=== PATIENT | male | born 1960 | race Caucasian/White ===

== ENCOUNTER → 2021-02-02 07:47 | Outpatient (CLI) | payer OTHER, SELFPAY ==
--- NOTE | ~2021-02-02 | MR_ITS ---
EXAMINATION: MR knee RT wo con DATE: 02/02/2021 08:31 INDICATION: Right knee pain. TECHNIQUE: Magnetic resonance imaging (MRI) of the right knee was performed without intravenous contr ast. Sequences included coronal PD-weighted FSE, coronal PD-weighted FS FSE, sagittal T2-weighted FS E, sagittal PD-weighted FS FSE and axial PD weighted fat saturated FSE. COMPARISON: None. FINDINGS: Medial compartment: There is a longitudinal horizontal tear which extends to the inferior articular surface of the grainer machine ior horn and body of the medial meniscus. The meniscal body appears small with more diffuse amorphous increased signal suggesting complex tear with additional secondary tear plane/planes. Partial-thickn ess cartilage loss with chondral surface regularity along the medial tibial plateau with small region of subarticular edema along the medial rim. Additional less severe partial thickness cartilage loss and fissuring throughout the weightbearing medial femoral condyle but without degenerative subchondra l changes. Lateral compartment: There is linear increased intrasubstance signal at the body and posterior horn of the lateral meniscu s but which does not unambiguously contact the articular surfaces which remains equivocal for tear of a longitudinal horizontal tear versus mucoid degeneration. Chondral surface regularity along the lat eral tibial plateau. Partial-thickness cartilage loss with chondral surface irregularity with and wit hout degenerative subchondral changes along the posterior weightbearing lateral femoral condyle. Patellofemoral compartment: Deep chondral ulceration with underlying cortical irregularity and subarticular edema extending acros s the caudal aspect of the medial trochlea, trochlear groove and lateral trochlea. Shallow chondral s urface irregularity at the lateral patellar facet, apical ridge and medial facet. Ligaments and tendons: Anterior and posterior cruciate ligaments are normal. The medial collateral ligament and fibular stacey ateral ligament complex are normal. Mild distal quadriceps tendinopathy without discrete tear. The pa tellar tendon is normal. The visualized medial and lateral hamstring tendons as well as the iliotibia l band are normal. Fluid: Small amount of fluid within the suprapatellar pouch of the right knee which is within normal limits. No loose osteochondral bodies identified. Very small Mendoza's cyst. Osseous/other: A few small scattered low signal intensity bone islands. No fracture or pathologic marrow replacing p rocess. IMPRESSION: 1. No meniscal tear, likely complex. 2. Possible longitudinal horizontal tear versus mucoid degeneration at the lateral meniscus. 3. 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 Reviewed, dictated and finalized at location A. IMPRESSION: 1. No meniscal tear, likely complex. 2. Possible longitudinal horizontal tear versus mucoid degeneration at the late ral meniscus. 3. Mild tricompartmental osteoarthritis at the right knee with high-grade troch lear chondromalacia.
== END ==
PROVIDERS: PCP Internal Medicine; Visit Provider Physician Assistant Medical
DX: M17.11 Unilateral primary osteoarthritis, right knee (principal)
CPT/HCPCS: 73721

== ENCOUNTER → 2021-04-18 01:04 | Outpatient (CLI) | payer OTHER, SELFPAY ==
[2021-04-18 17:56] LABS: SARS-CoV-2 RNA PCR Negative
== END ==
PROVIDERS: PCP Internal Medicine; Visit Provider Orthopaedic Surgery
DX: Z01.812 Encounter for preprocedural laboratory examination (principal); Z20.822 Contact with and (suspected) exposure to COVID-19
CPT/HCPCS: C9803; U0003; U0005

== ENCOUNTER 2021-04-18 09:01 | Outpatient (CLI) | payer OTHER, SELFPAY ==
[2021-04-18 09:26] LABS: Anion Gap 9 mmol/L (8-16); Blood Urea Nitrogen 18 mg/dL (9-20); Calcium 9.9 mg/dL (8.4-10.2); Carbon Dioxide 25 mmol/L (22-30); Chloride 110 mmol/L (98-107); Estimated Glomerular Filt Rate > 60; Glucose 107 mg/dL (75-110); Potassium 3.3 mmol/L (3.4-5.0); Sodium 144 mmol/L (137-145)
== END 2021-04-18 09:02 | disposition home or self-care (01) ==
PROVIDERS: PCP Internal Medicine; Visit Provider Anesthesiology
DX: Z01.812 Encounter for preprocedural laboratory examination (principal); Z79.899 Other long term (current) drug therapy
CPT/HCPCS: 36415; 80048

== ENCOUNTER 2021-04-21 01:55 | Day surgery (SDC) | payer OTHER, SELFPAY ==
[2021-04-10 13:37] VITALS: BMI 32.7
--- NOTE | 2021-04-20 12:56 | WPDANESEPPF ---
Anes - Initial Pre Proc Eval Procedure: Operation Date: 04/21/21 10:30 Proposed Procedures p Right Knee Arthroscopy, Proceed As Indicated - Rashaun Booker MD Date/Time: 04/20/21 12:56 Surgeon: Rashaun Booker MD Pre Op Diagnosis: right knee lateral meniscus tear Patient Data Age: 61 Gender: M Height: 1.73 m Weight: 97.57 kg Allergies Allergy/AdvReac Type Severity Reaction Status Date / Time No Known Allergies Allergy Unknown Verified 04/21/21 08:50 Home Medications Medication Instructions Recorded Confirmed Type amlodipine 5 mg tablet 5 mg PO DAILY 03/11/21 04/21/21 History pravastatin 20 mg tablet 20 mg PO DAILY 03/11/21 04/21/21 History triamterene 37.5 1 cap PO DAILY 03/11/21 04/21/21 History mg-hydrochlorothiazide 25 mg capsule Patient hx anesthesia problems: none Family hx anesthesia problems: none PMFSH Past Medical History Medical History (Updated 04/20/21 @ 12:57 by Jair Morgan MD) HTN (hypertension) Hyperlipidemia Kidney stones Obesity Wears glasses Family History Family History (Updated 03/09/21 @ 15:01 by Zeynep Zarco RT(R)) Other Diabetes mellitus Social History Social History (Updated 03/09/21 @ 09:47 by Eveline Lynn MA) Smoking status: Never smoker Alcohol intake: current Alcohol use details: 1 EVERY COUPLE MONTHS Substance use: never Substance use type: does not use Living arrangements: with family Gender identity (if verbalized by the patient): Male Spiritual care concerns: No Anes - Eval Final PreProcedure Day of Procedure 04/20/21 12:56 Patient weight: obese Heart: regular rate and rhythm Lungs: clear to auscultation and normal air movement Airway: Mallampati scale class II Neurological: alert and oriented Last oral intake: >/= 8 hours ASA classification: III Emergent: no Anesthetic plan: proceed Anesthesia type and monitoring: general LMA Informed Consent: The patient's anesthetic plan and its attendant risks and benefits were discussed with the patient/family/POA. Questions were solicited and answers provided to the satisfaction of the patient/family/POA.
[2021-04-21] VITALS (9 sets, daily range): BP systolic 113–139; BP diastolic 77–85; PULSE 52–66; RESP 12–16; TEMP 36.2–36.3; O2SAT 92–98
--- NOTE | 2021-04-21 07:20 | WPDHPUPDATE1 ---
History and Physical Update Update Date/Time: 04/21/21 07:20 History and Physical has been reviewed, including an updated exam of the patient. There are NO changes in the patient's condition. Risks, benefits, and alternatives have been discussed and questions answered. Patient agrees to proceed with procedure.
[2021-04-21] MEDS: ACETAMINOPHEN 500 MG TABLET 1000 MG PO (09:09)
[2021-04-21] MEDS: CELECOXIB 200 MG CAPSULE PO (09:09)
[2021-04-21] MEDS: LACTATED RINGERS 1,000 ML 30 ML IV CONT ×2 (09:22→13:42)
--- NOTE | 2021-04-21 10:39 | SUR.PREOP ---
1015 pt informed of delay in procedure.
[2021-04-21] MEDS: ceFAZolin 2 GM/D5W 50 ML 2 GM/50 ML BAG IVPB (11:56)
[2021-04-21] MEDS: BUPIVACAINE HCL 0.5% PF 30 ML VIAL INFILTRATE (12:30)
--- NOTE | 2021-04-21 13:20 | W.PM.PROC2 ---
Procedure Note - Detailed Date of Procedure 04/21/21 Pre-op Diagnosis right knee medial and lateral meniscus tear Post-op Diagnosis same Procedure Performed RIGHT KNEE SCOPE Surgeon Rashaun Booker MD Anesthesia general Description of Procedure PATIENT WAS TAKEN TO THE OR. RIGHT LEG WAS PREPPED AND DRAPED STERILE. TROCARS WERE PLACED IN THE USUAL FASHION. CAMERA WAS INTRODUCED. THERE WAS CHONDROMALACIA TO THE PATELLA FEMORAL JOINT. THERE WAS A LOT OF SYNOVITIS IN ALL COMPARTMENTS. THE MEDIAL COMPARTMENT SHOWED CHONDROMALACIA TO THE MEDIAL FEMORAL CONDYLE. A SHAVER WAS USED TO PREFORM A CHONDROPLASTY. THERE WAS A COMPLEX MEDIAL MENISCUS TEAR. THE TEAR WAS RESECTED WITH A BITER AND A SHAVER DOWN TO A SMOOTH BASE. ABOUT 30% OF THE MENISCUS WAS REMOVED. THE ACL WAS INTACT. THE LATERAL MENISCUS WAS TORN AT THE ANTERIOR HORN. THE TEAR WAS RESECTED. THE LAT COMPARTMENT HAD GRADE 2 CHONDROMALACIA AT THE LATERAL PLATEAU. CHONDROPLASTY WAS PREFORMED. A SYNOVECTOMY WAS PREFORMED WELL. THE PATELLO FEMORAL JOINT UNDERWENT CHONDROPLASTY. THERE WAS GRADE 3 CHONDROMALACIA IN MOST OF THE TROCHLEA AND PART OF THE PATELLA. SYNOVECTOMY WAS PREFORMED IN THE SUPERIOR MEDIAL COMPARTMENT. THE WOUNDS WERE APPROXIMATED WITH 4.0 NYLON. STERILE DRESSING WAS APPLIED. PATIENT WAS EXTUBATED. Estimated Blood Loss 5 Complications No immediate complications Condition stable Disposition PACU
--- NOTE | 2021-04-21 13:44 | SUR.PHASEI ---
Simple mask removed at 1335.
[2021-04-21] MEDS: fentaNYL CITRATE INJ (*CRX) 100 MCG/2 ML VIAL 25 MCG IV PUSH ×5 (13:46→14:55)
[2021-04-21] MEDS: oxyCODONE HCL (*CRX) 5 MG TAB IR PO (14:25)
== END 2021-04-21 15:16 | disposition home or self-care (01) ==
PROVIDERS: PCP Internal Medicine; Visit Provider Orthopaedic Surgery
PROC: (CPT 29870; principal; 2021-04-21 10:30)
DX: S83.231A Complex tear of medial meniscus, current injury, right knee, initial encounter (principal); S83.281A Other tear of lateral meniscus, current injury, right knee, initial encounter; M94.261 Chondromalacia, right knee; M65.861 Other synovitis and tenosynovitis, right lower leg; X58.XXXA Exposure to other specified factors, initial encounter; I10 Essential (primary) hypertension; E78.5 Hyperlipidemia, unspecified; E66.9 Obesity, unspecified; Z68.33 Body mass index [BMI] 33.0-33.9, adult
CPT/HCPCS: 29880; 36415; 80048; A9270; C9803; J0690; J2250; J2704; J3010; J7120; U0003; U0005

== ENCOUNTER → 2021-09-04 14:10 | Outpatient (CLI) | payer OTHER, SELFPAY ==
--- NOTE | ~2021-09-04 | CT_ITS ---
Corrected Report See Bolded Text 09/08/2021 POL[place] EXAMINATION: CT diagnostic chest w con DATE: 09/04/2021 14:42 INDICATION: Abnormal chest x-ray. Cough. TECHNIQUE: Computed tomography (CT) of the chest was performed with 75 cc Omnipaque 350 intravenous contrast. The dose-length product was 617.57 mGy-cm. Automated exposure control and iterative reconstruction technique were employed. COMPARISON: None FINDINGS: There is patchy bilateral airspace consolidation in both lungs, consistent with pneumonia. No endobronchial lesions. No significant vascular abnormality. Heart size normal. No significant pleural or pericardial effusion. No pneumothorax. No pulmonary embolism is identified. Small hiatal hernia. There are multiple low density lesions scattered throughout both lobes of the liver, largest in the left hepatic lobe measuring 3.1 x 2.6 cm. The spleen, pancreas and adrenal glands are unremarkable. There is a right renal cyst. The kidneys are only partially visualized. Gallbladder is present. IMPRESSION: 1. Patchy bilateral groundglass opacification throughout both lungs, compatible with pneumonia. 2: Multiple low-density lesions throughout the liver. These likely represent benign cysts, although further evaluation with contrast-enhanced MRI is recommended. Correlate for history of malignancy. Reviewed, dictated and finalized at location A. MTDD IMPRESSION: 1. Patchy bilateral groundglass opacification throughout both lungs, compatible with pneumonia. 2: Multiple low-density lesions throughout the liver. These likely represent b enign cysts, although further evaluation with contrast-enhanced MRI is recommen ded. Correlate for history of malignancy.
[2021-09-04 14:32] LABS: Estimated Glomerular Filt Rate > 60
== END ==
PROVIDERS: PCP Internal Medicine; Visit Provider Internal Medicine
DX: R91.8 Other nonspecific abnormal finding of lung field (principal)
CPT/HCPCS: 71260; Q9967

== ENCOUNTER → 2021-10-05 07:26 | Outpatient (CLI) | payer OTHER, SELFPAY ==
--- NOTE | ~2021-10-05 | MR_ITS ---
EXAMINATION: MR abdomen wo/w con DATE: 10/05/2021 09:24 INDICATION: Liver masses. TECHNIQUE: Magnetic resonance imaging (MRI) of the abdomen was performed without and with 18 mL Multi Elizabeth intravenous contrast. Sequences included coronal T2-weighted FS FSE, coronal and axial FS FIEST A, axial T2-weighted FSE, coronal LAVA-flex, axial STIR FSE, axial DWI, axial dual-echo T1-weighted F SPGR, and axial LAVA. Postcontrast sequences included coronal LAVA-flex and a time course of axial LA VA. COMPARISON: Chest CT 09/04/2021 FINDINGS: There is diffuse hepatic steatosis. There are cysts in the liver measuring up to 3.4 cm. The gallblad rosie, spleen, pancreas, and adrenal glands are normal. There are cysts in the kidneys measuring up to 19 mm on the right. There are peripelvic cysts in left kidney measuring up to 6.2 cm. There are no di lated loops of bowel. There are no pathologically enlarged lymph nodes. There is no free intraperiton eal fluid. IMPRESSION: 1. Benign cysts in the liver. 2. Diffuse hepatic steatosis. Reviewed, dictated and finalized at location A. RAM AIDE GROUP WORK
[2021-10-05 08:27] LABS: Estimated Glomerular Filt Rate > 60
== END ==
PROVIDERS: PCP Internal Medicine; Visit Provider Physician Assistant Medical
DX: K76.89 Other specified diseases of liver (principal); K76.0 Fatty (change of) liver, not elsewhere classified
CPT/HCPCS: 74183; A9577

== ENCOUNTER 2024-08-08 14:45 | Outpatient (CLI) | payer OTHER, SELFPAY ==
--- NOTE | ~2024-08-08 | CT_ITS ---
EXAMINATION: CT abdomen pelvis wo con DATE: 08/08/2024 15:02 INDICATION: Kidney stones. TECHNIQUE: Computed tomography (CT) of the abdomen and pelvis was performed without intravenous contr ast. Automated exposure control and iterative reconstruction technique were employed. The dose-length product was 1031.71 mGy-cm. COMPARISON: None. FINDINGS: The visualized portions of the lung bases demonstrate mild atelectasis. No pleural effusion . The heart size is normal. There are coronary artery calcifications. No pericardial effusion. There is diffuse hepatic steatosis. There are cysts in the liver measuring up to 3.3 cm. The gallbladder, s pleen, pancreas, and adrenal glands are normal. There are cysts in the kidneys measuring up to 6.3 cm on the left. There are 3 stones in right kidney measuring up to 4 mm. There are 3 stones in left kid dianna measuring up to 2 mm. The prostate is moderately enlarged. There is a left inguinal hernia contai harry fat. There is diverticulosis of the colon without evidence of diverticulitis. There are no dilat ed loops of bowel. The appendix is normal. There are no pathologically enlarged lymph nodes. There is no free intraperitoneal fluid. There is severe lower lumbar spondylosis. There is mild chronic anter ior wedging of multiple thoracic vertebral bodies. IMPRESSION: 1. Bilateral nonobstructing kidney stones. 2. Diffuse hepatic steatosis. Reviewed, dictated and finalized at location A.
== END 2024-08-08 14:46 | disposition home or self-care (01) ==
LOC: MICIMG 14:46
PROVIDERS: PCP Physician Assistant; Visit Provider Physician Assistant
DX: N20.0 Calculus of kidney (principal); K76.0 Fatty (change of) liver, not elsewhere classified
CPT/HCPCS: 74176

== ENCOUNTER 2024-09-30 12:31 | Emergency (ER) | payer OTHER, SELFPAY ==
--- NOTE | ~2024-09-30 | XR_ITS ---
EXAMINATION: XR chest 2V DATE: 09/30/2024 13:29 INDICATION: Cough and fever TECHNIQUE: PA and lateral views of the chest were obtained. COMPARISON: Chest radiograph dated 07/29/2022 FINDINGS: Small calcified nodule in the left lower lobe consistent with old granulomatous disease. No other air space opacities and pulmonary edema, pleural effusion or pneumothorax. The cardiomediastinal silhouet te is normal. Mild lower thoracic spondylosis with chronic mild anterior wedging of a few lower thora cic vertebral bodies. IMPRESSION: 1. No acute cardiopulmonary disease. Reviewed, dictated and finalized at location A. ING REPAIRER
[2024-09-30 12:45] VITALS: BP 112/65; PULSE 105; RESP 16; TEMP 38.1; O2SAT 95
[2024-09-30 13:13] LABS: EDINFLUASCREEN Negative (Negative); EDINFLUBSCREEN Negative (Negative)
--- NOTE | 2024-09-30 13:17 | ED_ITS ---
HPI - URI/Sore Throat General Chief Complaint: Upper Respiratory Infection Stated Complaint: Chills/Cough/Fever Source: patient Mode of arrival: ambulatory Limitations: no limitations History of Present Illness HPI Narrative: 64-year-old male with history of hypertension STEMI presented for complaint of decreased appetite, cough with fever and chills for 4 days. Since onset he has eaten a piece of toast and an egg. Denies shortness of breath, wheezing, abdominal pain, flank pain, nausea, vomiting or diarrhea. Tested negative for COVID at home today Related Data Home Medications Medication Instructions Recorded Confirmed aspirin 81 mg chewable tablet 81 mg PO DAILY 07/29/22 09/30/24 (Catherine Chewable Low Dose Aspirin) cholecalciferol (vitamin D3) 125 125 mcg PO DAILY 07/29/22 09/30/24 mcg (5,000 unit) capsule mecobalamin (vitamin B12) 1,000 1,000 mcg sublingual DAILY 07/29/22 09/30/24 mcg disintegrating tablet,sublingual amlodipine 5 mg tablet 5 mg PO DAILY 09/21/23 09/30/24 atorvastatin 80 mg tablet 80 mg PO QHS 09/21/23 09/30/24 metoprolol succinate 25 mg 25 mg PO DAILY 09/21/23 09/30/24 tablet,extended release 24 hr nitroglycerin 0.4 mg sublingual 0.4 mg sublingual Q5M PRN Chest 09/21/23 09/30/24 tablet Pain potassium chloride 10 mEq 10 meq PO BID 09/21/23 09/30/24 capsule,extended release spironolactone 25 mg tablet 25 mg PO DAILY 09/21/23 09/30/24 ticagrelor 90 mg tablet 90 mg PO Q12H 09/21/23 09/30/24 Allergies Allergy/AdvReac Type Severity Reaction Status Date / Time No Known Allergies Allergy Unknown Verified 09/30/24 13:13 Review of Systems Review of Systems: CONSTITUTIONAL: Reports body aches, fever, chills, sweats. EYES: Denies visual changes, redness, or discharge. ENT: Denies rhinorrhea, congestion, sore throat, or otalgia. CARDIOVASCULAR: Denies chest pain, palpitations, or edema. RESPIRATORY: Reports cough, denies sob, wheezing. GASTROINTESTINAL: Reports decreased appetite Denies abdominal pain, nausea, vomiting, or diarrhea. SKIN: Denies rash NEUROLOGIC: Denies headache All systems reviewed & are unremarkable except as noted in HPI and below PMFSH Past Medical History Medical History Elevated coronary artery calcium score FH: early coronary artery disease HTN (hypertension) Hyperlipidemia Kidney stones Obesity Right knee pain STEMI (ST elevation myocardial infarction) (09/2023) 09/19/2023 with stent LAD, Dr. Laughlin Wears glasses Surgical History Surgical History History of heart artery stent (~09/2023) History of lithotripsy Hx of colonoscopy Family History Family History Other Diabetes mellitus Social History Social History Social History: Patient is very confident in filling out medical forms. Patient has not received any assistance in the past 12 months. 06/07/24 Smoking status: Never smoker Alcohol intake: current Alcohol use details: 1 EVERY COUPLE MONTHS / rarely Substance use: never Substance use type: does not use Do You Feel Safe in your Home?: Yes Lack of Transportation: No Lack of Food: Never True Current Housing: I Have Housing Concerned About Future Housing: No Difficulty Paying Gas/Electric Bills: No Difficulty Paying for Meds: No Currently Unemployed: No Education: Trade/Vocational Certificate Difficulty w/ Childcare or Family Care: No Living arrangements: with family Occupation/Education: occupation Gender identity (if verbalized by the patient): Male Spiritual care concerns: No Comments At time of signature, I have reviewed and agree with nursing past medical, surgical, social and family history unless otherwise noted. Please see nursing chart for further information. There is no relevant family history pertinent to the presenting complaint Exam Narrative: GENERAL: mildly ill-appearing, in no acute distress. EYES: EOMI. No redness or drainage. Conjunctivae normal. ENT: Mucous membranes pink and moist. No rhinorrhea. TMs normal bilaterally. Throat normal. Uvula midline. NECK: Normal AROM. Supple. CHEST: No respiratory distress. Lungs clear to all quiles. HEART: Regular rate and rhythm. No murmur appreciated. ABDOMEN: Soft, nontender, nondistended, normal active bowel sounds. SKIN: Warm, dry, Capillary refill normal. Normal skin turgor. NEURO: Alert and oriented x3. Gait steady. Course Course Emergency Course: Patient is aware of diagnosis, understands and agrees to treatment plan. Anticipatory guidance given. Patient agrees to follow-up as directed and is aware of reasons to seek care at the emergency department. Portions of this record may have been created with voice recognition software Level of Care: Express Care Visit Vital Signs Vital signs: Vital Signs Temperature 100.6 F H 09/30/24 12:45 Pulse Rate 105 H 09/30/24 12:45 Respiratory Rate 16 09/30/24 12:45 Blood Pressure 112/65 09/30/24 12:45 Pulse Oximetry 95 09/30/24 12:45 Temperature 100.6 F H 09/30/24 12:45 Pulse Rate 105 H 09/30/24 12:45 Respiratory Rate 16 09/30/24 12:45 Blood Pressure 112/65 09/30/24 12:45 Pulse Oximetry 95 09/30/24 12:45 MDM - URI/Sore Throat MDM Narrative Medical decision making narrative: Discussed physical exam findings and chest x-ray. Due to the fever and decreased appetite, transfer to ER is offered; pt declines at this time. Advised supportive measures and signs/symptoms to go to the ER. Pt is appropriate for outpt treatment and f/u. Differential Diagnosis Differential diagnosis: Likely upper respiratory infection, sinusitis, viral infection, influenza and pharyngitis Lab Data Labs: Lab Results 09/30/24 Range/Units 13:13 POC Influenza A Ag Negative (Negative) POC Influenza B Ag Negative (Negative) Imaging Data Radiologist's impression: Patient: Fletcher Ventura : 1960 MR#: [id number] Age: 64 Acct:[id number] Loc: [facility] ADM Date: 09/30/24Attending Dr: Ordering Physician: Cleo Chow APRN Date of Service: 09/30/24 Procedure(s): XR chest 2V Accession Number(s): [id number] cc Cleo Chow APRN; Estella Aguirre PA-C~ EXAMINATION: XR chest 2V DATE: 09/30/2024 13:29 INDICATION: Cough and fever TECHNIQUE: PA and lateral views of the chest were obtained. COMPARISON: Chest radiograph dated 07/29/2022 FINDINGS: Small calcified nodule in the left lower lobe consistent with old granulomatous disease. No other airspace opacities and pulmonary edema, pleural effusion or pneumothorax. The cardiomediastinal silhouette is normal. Mild lower thoracic spondylosis with chronic mild anterior wedging of a few lower thoracic vertebral bodies. IMPRESSION: 1. No acute cardiopulmonary disease. Discharge Plan Discharge Clinical Impression: Viral infection Patient Disposition: Home, Self-Care Condition: Stable Instructions: Antibiotic Form, Viral Syndrome (ED) Additional Instructions: Rest. Stay hydrated. Take small sips of fluid containing electrolytes frequently. Clear liquids (broth, jello, tea, sprite, pedialyte) [place] foods (bananas, rice, applesauce, toast, crackers) Tylenol 1000 mg every 8 hours as needed for fever You should go to the ER for any worsening symptoms or concerns Follow up with primary care provider in 3 days. Prescriptions: No Action aspirin [Catherine Chewable Aspirin] 81 mg tablet,chewable 81 mg PO DAILY mecobalamin (vitamin B12) 1,000 mcg tablet,disintegrating 1,000 mcg sublingual DAILY Rx Instructions: place tablet under tongue and allow to dissolve for at least30 secs before swallowing cholecalciferol (vitamin D3) 125 mcg (5,000 unit) capsule 125 mcg PO DAILY atorvastatin 80 mg tablet 80 mg PO QHS metoprolol succinate 25 mg tablet extended release 24 hr 25 mg PO DAILY nitroglycerin 0.4 mg tablet, sublingual 0.4 mg sublingual Q5M PRN (Reason: Chest Pain) Rx Instructions: do not exceed 3 doses per episode potassium chloride 10 mEq capsule, extended release 10 meq PO BID spironolactone 25 mg tablet 25 mg PO DAILY ticagrelor 90 mg tablet 90 mg PO Q12H amlodipine 5 mg tablet 5 mg PO DAILY Follow-up/Referrals: Estella Aguirre PA-C [Primary Care Provider] -
== END 2024-09-30 13:53 | disposition home or self-care (01) ==
PROVIDERS: Emergency Provider Nurse Practitioner Family; PCP Physician Assistant Medical
DX: B34.9 Viral infection, unspecified (principal); I10 Essential (primary) hypertension; E78.5 Hyperlipidemia, unspecified; I25.2 Old myocardial infarction; Z95.5 Presence of coronary angioplasty implant and graft; Z79.82 Long term (current) use of aspirin
CPT/HCPCS: 71046; 87804; 99213; G0463

== ENCOUNTER 2025-02-06 01:11 | Day surgery (SDC) | payer OTHER, SELFPAY ==
[2025-01-28 12:11] VITALS: BMI 33.5
--- OUTSIDE RECORDS SUMMARY | 2025-02-06 01:16 | XMS_ITS | Encounter Summary ---
Author Organization [facility] Address [address] [place] [address] Care Team Providers Care Flange Machine Operator Name Role Phone Estella Aguirre Primary Care Provider [phone] Encounter Details Date Type Department Care Team (Late Contact Info) Description 10/05/2022 [facility] Message Enc [facility] [address] [address] [place], [facility] Provider Stress test Social History Tobacco Use Types Packs/Day Years Used Date Smoking Tobacco: Never Smokeless Tobacco: Never Alcohol Use Standard Drinks/Week Comments Yes 0 (1 standard drink = 0.6 oz pur e alcohol) rare AUDIT-C Answer Date Recorded Frequency of Alcohol Consumption Never 05/09/2019 Average Number of Drinks Not on file 019 Frequency of Binge Drinking Not on file 01/2019 Sex and Gender Information Value Date Recorded Sex Assigned at Male 01/04/2025 11:09 AM SURVEILLANCE DUAL RATE OFFICER Legal Sex Male 7:34 PM CDT Gender Identity Not on file Sexual Orientation Not on file COVID-19 Exposure Response Date Recorded In the last 10 days, have yo u been in contact with someone who was confirmed or suspected to have Coronavirus/COVID-19? No / Unsure 10/04/2022 8:17 AM SURVEILLANCE DUAL RATE OFFICER documented as of this encounter Plan of Treatment Upcoming Encounters Date Type Department Care Team (Late Contact Info) Description 07/04/2025 10:45 AM CDT Office Visit [facility] [address] [place] [address] En Laughlin MD [address] [address] documented as of this encounter Visit Diagnoses Not on filedocumented in this encounter Additional Health Concerns Infection Onset Date Last Indicated Resolved Time COVID-19 Rule Out 10/01/2024 10/01/2024 10/01/2024 3:05 PM SURVEILLANCE DUAL RATE OFFICER Rhinovirus 10/01/2024 10/01/2024 10/11/2024 12:3 2 AM SURVEILLANCE DUAL RATE OFFICER documented as of this encounter Care Teams Flange Machine Operator Relationship Specialty Start Date End Date Estella Aguirre PA [facility] [place] [address] PCP - General PHYSICIAN PHOTOENGRAVING ETCHER APPRENTICE 08/02/22 documented as of this encounter
--- OUTSIDE RECORDS SUMMARY | 2025-02-06 01:16 | XMS_ITS | Clinical Summary ---
Author Organization [facility] Address [address] [place] [address] Care Team Providers Care Dehydrator Name Role Phone Estella Aguirre Primary Care Provider [phone] Allergies No known active allergies Medications albuterol HFA (PROVENTIL HFA,VENTOLIN HFA,PROAIR HFA) 90 mcg/actuation inhaler Inhale 2 puffs every 6 (six) hours as needed 10/02/2024 Active amLODIPine (NORVASC) 5 mg tablet Take 1 tablet (5 mg total) by mouth daily 11/13/2024 Active atorvastatin (LIPITOR) 80 mg tablet Take 1 tablet (80 mg total) by mouth daily 09/21/2024 Active cholecalciferol (VITAMIN D-3) 5,000 unit tablet Take 1 tablet (5,000 Units total) by mouth daily Active cyanocobalamin (Vitamin B-12) 1,000 mcg tablet Take 1 tablet (1,000 mcg total) by mouth daily Active metoprolol XL (TOPROL-XL) 25 mg extended release tablet Take 1 tablet (25 mg total) by mouth daily 09/21/2024 Active nitroglycerin (NITROSTAT) 0.[address] 1 tablet (0.4 mg total) under the tongue every 5 (five) minutes as needed 10/06/2023 Active spironolactone (ALDACTONE) 25 mg tablet Take 1 tablet (25 mg total) by mouth daily 09/21/2024 Active tamsulosin (FLOMAX) 0.4 mg extended release capsule Take 1 capsule (0.4 mg total) by mouth daily Active aspirin 81 mg enteric coated tablet Take 1 tablet (81 mg total) by mouth daily 12/18/2024 Active Encounters Date Type Department Care Team Description 12/17/2024 9:00 AM RIGGER THIRD - 12/17/2024 9:30 AM [facility] Surgery [facility] [address] [place] [phone] Florin Taveras MD ESOPHAGOGASTRODUODENOSCOPY ULTRASOUND EXAM LIMITED 12/17/2024 8:37 AM RIGGER THIRD Anesthesia Event [facility] [address] [place] [phone] Angie Schulz MD [place], Corey Allen, CRNA 12/17/2024 7:57 AM RIGGER THIRD - 12/17/2024 9:38 AM RIGGER THIRD Hospital Encounter [facility] [address] [place] [phone] Florin Taveras MD Abnormal CT scan, gastrointestinal tract Discharge Disposition: Discharge to home or self care from Last 3 Months Surgical History Surgery Date Site/Laterality Comments COLONOSCOPY CARDIAC STENT PLACEMENT 09/07/2023 - 10/06/2023 CYSTOSCOPY W/ URETEROSCOPY W / LITHOTRIPSY Bilateral Medical History Medical History Date Comments Colon polyp Hypertension Hyperlipidemia Kidney stone Myocardial infarction (HCC) Family History Medical History Relation Name Comments Leukemia Mother Relation Name Status Comments Mother Social History Tobacco Use Types Packs/Day Years Used Date Smoking Tobacco: Never Tobacco Cessation:Counseling Given: Not Answered AUDIT-C Answer Date Recorded Q1: How often do you have a drink containing alc ohol? Monthly or less 12/17/2024 Q2: How many drinks containi ng alcohol do you have on a typical day when you are drinking? 1 or 2 12/17/2024 Q3: How often do you have si x or more drinks on one occasion? Less than monthly 12/17/2024 Personal Safety Answer Date Recorded Have you ever been in or are you currently in a harmful physical or emotional relationship or is someone making you feel afraid or unsafe? Denies 12/17/2024 Sex and Gender Information Value Date Recorded Sex Assigned at Not on file Legal Sex Male 1:36 PM RIGGER THIRD Gender Identity Not on file Sexual Orientation Not on file Obstetrics History Last Filed Vital Signs Vital Sign Reading Time Taken Comments Blood Pressure 133/87 12/17/2024 9:25 AM RIGGER THIRD Pulse 72 12/17/2024 9:25 AM RIGGER THIRD Temperature 35.7 C (96.3 F) 12/17/2024 8:16 AM RIGGER THIRD Respiratory Rate 16 12/17/2024 9:25 AM RIGGER THIRD Oxygen Saturation 96% 12/17/2024 9:25 AM RIGGER THIRD Inhaled Oxygen Concentration - - Weight 99.3 kg (219 lb) 12/17/2024 8:16 AM RIGGER THIRD Height 172.7 cm (5' 8 ) 12/17/2024 8:16 AM RIGGER THIRD Body Mass Index 33.3 12/17/2024 8:16 AM RIGGER THIRD Plan of Treatment Health Maintenance Due Date Last Done Comments Colon Cancer Screening-Colonoscopy 1960 Depression Screening 1960 Hepatitis C Screening 1960 Prostate Cancer Screening-PSA 1960 DTaP/Tdap/Td Vaccine (1 - Tdap) 1971 Hepatitis B Screening 1978 Regular Well Visit/Exam 18-64 1978 Zoster Vaccine (1 of 2) 2010 Covid-19 Vaccine (3 - 2023-2 5 season) 2024 04/08/2021, 03/18/2021 Influenza Vaccine (#1) 2024 3, 09/14/2020, 08/02/2019 Pneumococcal vaccine <65 Aged Out No longer eligible based on patient's age to complete this topic Procedures Procedure Name Priority Date/Time Associated Diagnosis Comments US ENDOSCOPIC IP Routine 12/17/2024 8:59 AM RIGGER THIRD Abnormal CT scan, gastrointestinal tract SURGICAL PATHOLOGY Routine 12/17/2024 8:45 AM RIGGER THIRD Abnormal CT scan, gastrointestinal tract ENDO ADD ON ESOPHAGOGASTRODUODENOSCOPY BIOPSY 12/17/2024 8:38 AM RIGGER THIRD Abnormal CT scan, gastrointestinal tract ESOPHAGOGASTRODUODENOSCOPY ULTRASOUND EXAM LIMITED 12/17/2024 8:38 AM RIGGER THIRD Abnormal CT scan, gastrointestinal tract UPPER EUS 12/17/2024 8:31 AM RIGGER THIRD from Last 3 Months Results * Surgical pathology (12/17/2024 8:45 AM RIGGER THIRD) Tissue (Esophageal biopsy) 12/17/2024 8:45 AM RIGGER THIRD Tissue (Gastric/Stomach biopsy) 12/17/2024 8:45 AM RIGGER THIRD Narrative PATHOLOGY [facility] - 12/18/2024 8:32 AM RIGGER THIRD [address] [address] Tele: Serena Toussaint MD - Senior Policy Associate Note to Patients: This report may contain a detailed description of human tissue sent by a health care provider to the laboratory for pathologic evaluation. The content of this report is essential for diagnosis and may provide important critical findings. This information may be unfamiliar to patients to review without a medical professional present. It is advised that the patient review this report in the presence of a health care provider who can answer questions and explain the details. SURGICAL PATHOLOGY REPORT Patient Name: MERLYN ALMONTE Address: [address] [place] [address]- Gender: M : 1960 (Age: 64) Service: Gastro Location: [facility], Hospital #: [id number] Patient Type: [facility] SAME DAY SURGERY Taken: 12/17/2024 Received 12/17/2024 Reported: 12/18/2024 Physician(s): Jamila Billy PA-C DIAGNOSIS: Esophagus, mucosal biopsy: - Chronic esophagitis, mild Stomach, mucosal biopsy: - Chronic gastritis, minimal - No Helicobacter pylori detected - Negative for intestinal metaplasia or malignancy /12/18/2024 08:32 Examining Pathologist: Yusuf Hair M.D. Report Reviewed and Electronically Signed By Yusuf Hair M.D. SPECIMEN TYPE: A: ESOPHAGEAL BIOPSY B: GASTRIC BIOPSY CLINICAL IMPRESSION AND HISTORY: Common bile duct dilation of unknown etiology and gallbladder polyps seen on CT scan and ultrasound. Abdominal pain in the right upper quadrant, GERD. Findings include LA grade A reflux esophagitis, erythematous mucosa in the antrum, normal examined duodenum. GROSS DESCRIPTION: The tissue is received in two containers of formalin all labeled with the patient's name MERLYN ALMONTE. A. The first container is additionally labeled esophageal biopsy and contains a 0.2 x 0.1 x 0.1 cm tissue fragment. Due to the color and size of the specimen, eosin is used. The specimen is filtered and submitted entirely in cassette A1. B. The second container is additionally labeled gastric biopsy and contains two tissue fragments measuring 0.4 x 0.1 x 0.1 cm in aggregate. Due to the color and size of the specimen, eosin is used. The specimen is filtered and submitted entirely in cassette B1. [facility]/12/17/2024 13:55 ,[facility] MICROSCOPIC DESCRIPTION: Sections of the esophageal biopsy show fragments of squamous mucosa with mild basal hyperplasia with mild increased intraepithelial lymphocytes. No intestinal metaplasia, dysplasia, or malignant features are evident. Eosinophils are not prominent in the epithelium. Sections of the gastric biopsy show fragments of gastric mucosa with minimal chronic inflammation. No Helicobacter pylori, intestinal metaplasia, or malignant features are evident. Clerical Data Follows A; 09996 B; [id number] REPORT IMAGES AND/OR SCANNED DOCUMENTS ONLY VIEWABLE IN PDF FORMAT The immunohistochemical test(s) cited in this report, if any, was developed and its performance characteristics determined by [facility] Pathology Department. It has not been cleared or approved by the U.S. Food and Drug Administration. The FDA has determined that such clearance or approval is not necessary. This test is used for clinical purposes. It should not be regarded as investigational or for research. [facility] is certified under the Clinical Laboratory Improvement Amendments of 1988 (CLIA) as qualified to perform high complexity testing. Immunostains were performed on formalin-fixed paraffin embedded tissue using a polymer diaminobenzidine chromogen detection system. Antibodies used may include clone SP1 (rabbit monoclonal, estrogen receptor), clone 1E2 (rabbit monoclonal progesterone receptor), Ki-67 (rabbit monoclonal, 30-9), CD117 (rabbit polyclonal, c-kit), and anti-Her-2/alvin (4B5) (rabbit monoclonal primary antibody). In the event that immunohistochemistry or special stains have been performed, attending physician has confirmed appropriateness of controls. Frozen section, operating room consultation, gross examination and dissection, and case sign out may have been performed in part or completely in the following laboratories: [facility], [address] [place] [address], [address], [place] [address]. us Florin Taveras MD LAB PATHOLOGY ORDERABLES Carmen maria luz Result PATHOLOGY [facility] Laboratory Receiving [address] [place] [address] * Upper EUS (12/17/2024 8:31 AM RIGGER THIRD) Anatomical Region Laterality Modality Other Narrative Procedure Note Florin Taveras MD - 12/17/2024 8:31 AM CST ENDOSCOPY LAB Patient Name: Merlyn Almonte Procedure Date: 12/17/2024 8:31 AM Admit Type: Outpatient Room: [facility] Date of : 1960 Instrument Name:[id number] Gender: Male Note Status: Finalized Procedure: Upper EUS Indications: Common bile duct dilation (etiology unknown) and GB polyp seen on CT scan and US, Abdominal pain in the right upper quadrant, GERD Providers: Florin Taveras M.D. Referring MD: Estella Aguirre PA-C Medicines: Monitored Anesthesia Care Complications: No immediate complications. Estimated blood loss: Minimal. Estimated Blood Loss: Estimated blood loss was minimal. Procedure: The risks, benefits and alternatives were discussed and informed consent was obtained.The [id number] was introduced through the mouth, and advanced to the third part of duodenum The Endoscope was introduced through the mouth, and advanced to the second partof duodenum The upper EUS was accomplished without difficulty. The patient tolerated the procedurewell. Findings: ENDOSCOPIC FINDING: : LA Grade A (one or more mucosal breaks less than 5 mm, not extending between tops of 2 mucosal folds) esophagitis was found 38 to 39 cmfrom the incisors. Biopsies were taken with a cold forceps forhistology. Striped mildly erythematous mucosa was found in the gastric antrum. Biopsies were taken with a cold forceps for histology. The examined duodenum was normal. ENDOSONOGRAPHIC FINDING: : The region of the celiac plexus and celiac ganglia was visualized and showed no sign of significant endosonographic abnormality. Thevascular anatomy of the region was normal. Pancreatic parenchymal abnormalities were noted in the entirepancreas. These consisted of atrophy and hyperechoic foci. These findings aredue to papillary stenosis. There was no evidence of chronicpancreatitis. The pancreatic duct had a dilated endosonographic appearance in themain pancreatic duct. The pancreatic duct measured up to 3 mm in diameterat the head. Anechoic lesions suggestive of two cysts were identified in the pancreatic body and pancreatic tail. The largest lesion measured 6 mmby 5 mm in maximal cross-sectional diameter at the tail of pancreas.There was no associated mass. There was dilation in the common bile duct which measured up to 7mm. A hyperechoic polyp was identified endosonographically in the gallbladder. There was no sign of significant endosonographic abnormality in the ampulla. No pathologic lymphadenopathy and no masses wereidentified. There was abnormal echogenicity in the left lobe of the liver and inthe right lobe of the liver. This area was hyperechoic. Impression: EGD - LA Grade A reflux esophagitis. Biopsied. - Erythematous mucosa in the antrum. Biopsied. - Normal examined duodenum. EUS impression: - The pancreatic duct and bile duct were mildly dilated due to papillary stenosis. There was no evidence of chronic pancreatitis or tumor. - Two cystic lesions were seen in the pancreaticbody and pancreatic tail. Tissue has not been obtained. 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 - Three polyps vs sludge balls (favor sludge) were found in the gallbladder. - Fatty liver - Benign liver cysts. Recommendation: - The patient will be observed post-procedure,until all discharge criteria are met. - Low fat diet. - Follow an antireflux regimen indefinitely. - Repeat the upper endoscopic ultrasound in 1 yearfor surveillance of the pancreas cysts. - The findings and recommendations were discussedwith the patient and their family. Attending Participation: I personally performed the entire procedure. Electronically signed by Florin Taveras MD Florin Taveras M.D. 12/17/2024 9:03:43 AM This document was signed electronically. Number of Addenda: 0 Note Initiated On: 12/17/2024 8:31 AM Scope In: Scope Out: us Florin Taveras MD ENDOSCOPY PROCEDURES Final Re sult from Last 3 Months Advance Directives For more information, please contact: [phone] * Full Code (Latest Code Status on File) Date Activated Date Inactivated Comments 12/17/2024 8:08 AM 12/17/2024 1:43 PM Care Teams Dehydrator Relationship Specialty Start Date End Date Estella Aguirre PA [address] [place] [id number] PCP - General Physician Farm Boss 12/07/24
--- OUTSIDE RECORDS SUMMARY | 2025-02-06 01:16 | XMS_ITS | Encounter Summary ---
Author Organization [facility] Address [address] [place] [address] Care Team Providers Care Mine Manager Name Role Phone Estella Aguirre Primary Care Provider [phone] Encounter Details Date Type Department Care Team (Late Contact Info) Description 10/18/2022 [facility] [address] Rowena Benz MA Social History Tobacco Use Types Packs/Day Years [...] Sex Assigned at Male 01/04/2025 11:09 AM HOST HOSTESS Legal Sex Male 7:34 PM CDT Gender Identity Not on file Sexual Orientation Not on file COVID-19 Exposure Response Date Recorded In the last 10 days, have yo u been in contact with someone who was confirmed or suspected to have Coronavirus/COVID-19? No / Unsure 10/04/2022 8:17 AM HOST HOSTESS documented as of this encounter Plan of Treatment Upcoming Encounters Date Type Department Care Team (Late Contact Info) Description 07/04/2025 10:45 AM CDT Office Visit [facility] [address] [place] [phone] En Laughlin MD [facility]. [facility] [address] [place] [address] documented as of this encounter Procedures Procedure Name Priority Date/Time Associated Diagnosis Comments CBC (OUTSIDE LAB) Routine 11/13/2024 COMPREHENSIVE METABOLIC PANEL Routine 11/13/2024 HEMOGLOBIN, GLYCOSYLATED Routine 11/13/2024 VITAMIN D, 25 OH Routine 06/03/2022 HEMOGLOBIN, GLYCOSYLATED Routine 12/14/2021 COMPREHENSIVE METABOLIC PANEL Routine 12/14/2021 LIPID PANEL Routine 12/14/2021 CBC, MANUAL DIFF Routine 12/14/2021 VITAMIN D, 25 OH Routine 12/14/2021 documented in this encounter Results * CBC (OUTSIDE LAB) (11/13/2024) WBC 7.1 HGB 15.1 HCT 45.4 PLT 166 11/13/2024 us Default History Genericprovider LAB-OUTSIDE/ABST RACTED Final Result * COMPREHENSIVE METABOLIC PANEL (11/13/2024) SODIUM S/P/B 138 POTASSIUM S/P/B 4.1 CO2 24 CHLORIDE S/P/B 105 GLUCOSE 106 mg/dL CALCIUM S/P/B 10.1 BUN 14 CREATININE S/P/B 1.02 0.7 - 1.3 GFR ESTIMATE 82 ALKALINE PHOSPHATASE S/P/B 89 ALT 36 AST 26 BILIRUBIN TOTAL S/P/B 0.7 ALBUMIN S/P/B 4.6 3.5 - 5.0 TOTAL PROTEIN S/P/B 6.9 GLOBULIN 2.3 11/13/2024 [facility] Genericprovider LABORATORY Edited Result - Final * HEMOGLOBIN, GLYCOSYLATED (11/13/2024) Pathologist [facility] HGB A1C 5.7 % 11/13/2024 Result [facility] Genericprovider LABORATORY Edited Result - Final * VITAMIN D, 25 OH (06/03/2022) Pathologist [facility] VITAMIN D 25 HYDROXY S/P/B 82 06/03/2022 Result [facility] Genericprovider LABORATORY Final Result * VITAMIN D, 25 OH (12/14/2021) Pathologist [facility] VITAMIN D 25 HYDROXY S/P/B 16 12/14/2021 [facility] Final Result * COMPREHENSIVE METABOLIC PANEL (12/14/2021) Pathologist [facility] SODIUM S/P/B 142 GLUCOSE 95 mg/dL AST 22 BUN 20 CREATININE S/P/B 1.03 0.7 - 1.3 CALCIUM S/P/B 10.2 POTASSIUM S/P/B 3.6 CHLORIDE S/P/B 105 ALT 34 GFR ESTIMATE 78 Result [facility] Genericprovider LABORATORY Final Result * LIPID PANEL (12/14/2021) Pathologist [facility] CHOLESTEROL 172 TRIGLYCERIDES 174 HDL 42 LDL (CALCULATED) 101 NON HDL CHOLESTEROL 130 Result [facility] Genericprovider LABORATORY Final Result * CBC, MANUAL DIFF (12/14/2021) Pathologist [facility] WBC 6.5 HGB 16.4 HCT 48.9 PLT 163 us Default History Genericprovider LABORATORY Final Result * HEMOGLOBIN, GLYCOSYLATED (12/14/2021) HGB A1C 5.6 % us Default History Genericprovider LABORATORY Final Result documented in this encounter Visit Diagnoses Not on filedocumented in this encounter Additional Health Concerns Infection Onset Date Last Indicated Resolved Time COVID-19 Rule Out 10/01/2024 10/01/2024 10/01/2024 3:05 PM HOST HOSTESS Rhinovirus 10/01/2024 10/01/2024 10/11/2024 12:3 2 AM HOST HOSTESS documented as of this encounter Care Teams Mine Manager Relationship Specialty Start Date End Date Estella Aguirre PA [address] [place] [id number] PCP - General PHYSICIAN PONY WORKER 08/02/22 documented as of this encounter
--- OUTSIDE RECORDS SUMMARY | 2025-02-06 01:16 | XMS_ITS | Referral Summary ---
Author Organization [facility] Address [address] [place] [address] Care Team Providers Care Ear Mold Laboratory Technician Name Role Phone Estlela Aguirre Primary Care Provider [phone] Encounters Date Type Department Care Team Description 12/17/2024 8:37 AM PATIENT SERVICE REP Anesthesia Event [facility] [address] [place] [phone] Angie Schulz MD [place], Corey Allen, MANAGER PROGRESSIVE CARE 12/17/2024 9:00 AM PATIENT SERVICE REP - 12/17/2024 9:30 AM PATIENT SERVICE REP Surgery [facility] [address] [place] [phone] Florin Taveras MD ESOPHAGOGASTRODUODENOSCOPY ULTRASOUND EXAM LIMITED 12/17/2024 7:57 AM PATIENT SERVICE REP - 12/17/2024 9:38 AM PATIENT SERVICE REP Hospital Encounter [facility] [address] [place] [phone] Florin Taveras MD Abnormal CT scan, gastrointestinal tract Discharge Disposition: Discharge to home or self care from Last 3 Months Allergies No known active allergies Medications albuterol [...] mg total) by mouth daily 12/18/2024 Active Social History Tobacco Use Types Packs/Day Years [...] on file Legal Sex Male 1:36 PM PATIENT SERVICE REP Gender Identity Not on file Sexual Orientation Not on file Last Filed Vital Signs Vital Sign Reading Time Taken Comments Blood Pressure 133/87 12/17/2024 9:25 AM PATIENT SERVICE REP Pulse 72 12/17/2024 9:25 AM PATIENT SERVICE REP Temperature 35.7 C (96.3 F) 12/17/2024 8:16 AM PATIENT SERVICE REP Respiratory Rate 16 12/17/2024 9:25 AM PATIENT SERVICE REP Oxygen Saturation 96% 12/17/2024 9:25 AM PATIENT SERVICE REP Inhaled Oxygen Concentration - - Weight 99.3 kg (219 lb) 12/17/2024 8:16 AM PATIENT SERVICE REP Height 172.7 cm (5' 8 ) 12/17/2024 8:16 AM PATIENT SERVICE REP Body Mass Index 33.3 12/17/2024 8:16 AM PATIENT SERVICE REP Plan of Treatment Not on file Procedures Procedure Name Priority Date/Time Associated Diagnosis Comments US ENDOSCOPIC IP Routine 12/17/2024 8:59 AM PATIENT SERVICE REP Abnormal CT scan, gastrointestinal tract SURGICAL PATHOLOGY Routine 12/17/2024 8:45 AM PATIENT SERVICE REP Abnormal CT scan, gastrointestinal tract ENDO ADD ON ESOPHAGOGASTRODUODENOSCOPY BIOPSY 12/17/2024 8:38 AM PATIENT SERVICE REP Abnormal CT scan, gastrointestinal tract ESOPHAGOGASTRODUODENOSCOPY ULTRASOUND EXAM LIMITED 12/17/2024 8:38 AM PATIENT SERVICE REP Abnormal CT scan, gastrointestinal tract UPPER EUS 12/17/2024 8:31 AM PATIENT SERVICE REP from Last 3 Months Results * Surgical pathology (12/17/2024 8:45 AM PATIENT SERVICE REP) Tissue (Esophageal biopsy) 12/17/2024 8:45 AM PATIENT SERVICE REP Tissue (Gastric/Stomach biopsy) 12/17/2024 8:45 AM PATIENT SERVICE REP Narrative PATHOLOGY [facility] - 12/18/2024 8:32 AM PATIENT SERVICE REP [address] [address] Tele: Serena Toussaint MD - Retail Loan Officer Note to Patients: This report may contain [...] PATHOLOGY REPORT Patient Name: MERLYN ALMONTE Address: [address] [place] [address]- Gender: M : 1960 (Age: 64) Service: Gastro Location: [facility], Hospital #: [id number] Patient Type: [facility] SAME DAY SURGERY Taken: 12/17/2024 Received 12/17/2024 Reported: 12/18/2024 Physician(s): Jamila Billy PA-C DIAGNOSIS: Esophagus, mucosal biopsy: - Chronic esophagitis, mild Stomach, mucosal biopsy: - Chronic gastritis, minimal - No Helicobacter pylori detected - Negative for intestinal metaplasia or malignancy [facility]/12/18/2024 08:32 Examining Pathologist: Yusuf Hair M.D. Report [...] filtered and submitted entirely in cassette B1. [facility]/12/17/2024 13:55 ,[facility] MICROSCOPIC DESCRIPTION: Sections of the esophageal biopsy [...] features are evident. Clerical Data Follows A; 98910 B; 82076 REPORT IMAGES AND/OR SCANNED DOCUMENTS ONLY VIEWABLE IN PDF FORMAT The immunohistochemical test(s) cited in this report, if any, was developed and its performance characteristics determined by [facility] Department. It has not been cleared or approved by the U.S. Food and Drug Administration. The FDA has determined that such clearance or approval is not necessary. This test is used for clinical purposes. It should not be regarded as investigational or for research. [facility] is certified under the Clinical [...] part or completely in the following laboratories: [facility], [address] [place] [address], [address] [place] [address]. Florin Taveras MD LAB PATHOLOGY ORDERABLES Carmen l Result PATHOLOGY [facility] Laboratory Receiving [address] [place] [address] * Upper EUS (12/17/2024 8:31 AM PATIENT SERVICE REP) Anatomical Region Laterality Modality Other Narrative Procedure Note Florin Taveras MD - 12/17/2024 8:31 AM CST ENDOSCOPY LAB Patient Name: Merlyn Almonte Procedure Date: 12/17/2024 8:31 AM Admit Type: Outpatient Room: [facility] 4 Date of : 1960 Instrument Name:[id number] Gender: Male Note Status: Finalized Procedure: Upper [...] were discussed and informed consent was obtained.The [id number] was introduced through the mouth, and advanced [...] Advance Directives For more information, please contact: [phone] * Full Code (Latest Code Status on File) Date Activated Date Inactivated Comments 12/17/2024 8:08 AM 12/17/2024 1:43 PM Care Teams Ear Mold Laboratory Technician Relationship Specialty Start Date End Date Estella Aguirre PA [address] [place] [id number] PCP - General Physician Mri Ct Tech 12/07/24
--- OUTSIDE RECORDS SUMMARY | 2025-02-06 01:16 | XMS_ITS | Clinical Summary ---
Author Organization [facility] Address [address] [place] [address] Care Team Providers Care Marketing Intelligence Analyst Name Role Phone Estella Aguirre Primary Care Provider [phone] Allergies No known active allergies Medications aspirin EC (ECOTRIN) 81 MG tablet Take 1 tablet (81 mg total) by mouth daily. Active vitamin B-12 (CYANOCOBALAMIN ) (CYANOCOBALAMIN ) 1000 mcg tablet Take 1 tablet (1,000 mcg total) by mouth daily. Active cholecalciferol (VITAMIN D3) 125 MCG (5000 UT) Tab Take 1 tablet (5,000 Units total) by mouth daily. Active nitroglycerin (NITROSTAT) 0.[address] 1 tablet (0.4 mg total) under the tongue every 5 (five) minutes as needed for Chest Pain. Maximum of 3 doses. If taking 3rd dose call 911 25 tablet 1 3 Active tamsulosin (FLOMAX) 0.4 MG Cap Take 1 capsule (0.4 mg total) by mouth daily. 4 Active albuterol sulfate HFA 108 (90 Base) MCG/ACT inhaler Inhale 2 puffs into the lungs every 6 (six) hours as needed for Wheezing or Shortness of breath. 8 g 4 Active benzonatate (TESSALON) 100 MG capsule Take 1 capsule (100 mg total) by mouth 3 (three) times daily. 5 Active amLODIPine (NORVASC) 5 MG tablet Take 1 tablet (5 mg total) by mouth daily. 90 tablet 3 5 Active atorvastatin (LIPITOR) 80 MG tablet Take 1 tablet (80 mg total) by mouth nightly at bedtime. 90 tablet 3 5 Active metoprolol succinate ER (TOPROL-XL) 25 MG 24 hr tablet Take 1 tablet (25 mg total) by mouth daily. 90 tablet 3 5 Active eplerenone (INSPRA) 25 MG tablet Take 1 tablet (25 mg total) by mouth daily. 90 tablet 3 5 Active Active Problems Problem Noted Date Diagnosed Date Pyelonephritis 10/01/2024 NSTEMI (non-ST elevated myoc ardial infarction) ([facility]) 09/19/2023 Encounters Date Type Department Care Team Description 12/27/2024 11:30 AM SUPERVISOR FUNCTIONAL TESTING Office Visit [facility] [address] [place] [address] Lisbeth Burks, FILE DRAWER FINISHER Coronary Artery Disease 12/27/2024 Travel from Last 3 Months Immunizations Name Administration Dates Next Due Fluzone 6 Months+ Quad (0.5 mL Prefilled Syringe) 09/20/2023,09/19/2023(Deferred: Patient/family declined - pt requested vaccine in am) Influenza Adult (Generic) 09/14/2020,08/02/2019 Family History Medical History Relation Comments Heart Attack Father Heart Disease Father Cancer Mother Relation Status Comments Brother Alive Father Mother Sister 1 Alive Sister 2 Alive Social History Tobacco Use Types Packs/Day Years Used Date Smoking Tobacco: Never Smokeless Tobacco: Never Tobacco Cessation:Counseling Given: Not Answered Alcohol Use Standard Drinks/Week Comments Not Currently 0 (1 standard drink = 0.6 oz pur e alcohol) rare [facility] Utilities Answer Date Recorded In the past 12 months has e [place], gas, oil, or water [employer] threatened to shut off services in your home? No 10/01/2024 Humiliation, Afraid, Rape, and Kick questionnair e Answer Date Recorded Within the last year, have y ou been afraid of your partner or ex-partner? No 10/01/2024 Within the last year, have y ou been humiliated or emotionally abused in other ways by your partner or ex-partner? No Within the last year, have y ou been kicked, hit, slapped, or otherwise physically hurt by your partner or ex-partner? No 10/01/2024 Within the last year, have y ou been raped or forced to have any kind of sexual activity by your partner or ex-partner? No 10/01/2024 AUDIT-C Answer Date Recorded Frequency of Alcohol Consumption Never 05/09/2019 Average Number of Drinks Not on file 019 Frequency of Binge Drinking Not on file 01/2019 Overall Financial Resource Strain (CARDIA) Answe r Date Recorded How hard is it for you to pa y for the very basics like food, housing, medical care, and heating? Not hard at all 10/01/2024 Hunger Vital Sign Answer Date Recorded Within the past 12 months, y ou worried that your food would run out before you got the money to buy more. Never true 10/01/20 24 Within the past 12 months, t he food you bought just didn't last and you didn't have money to get more. Never true 10/01/2024 PRAPARE - Transportation Answer Date Re corded In the past 12 months, has l ack of transportation kept you from medical appointments or from getting medications? No 09/08 In the past 12 months, has l ack of transportation kept you from meetings, work, or from getting things needed for daily living? No 10/01/2024 Housing Stability Vital Sign Answer Deon e Recorded In the last 12 months, was t here a time when you were not able to pay the mortgage or rent on time? No 10/01/2024 In the past 12 months, how m any times have you moved where you were living? 0 10/01/2024 At any time in the past 12 m [facility], were you homeless or living in a half-way (including now)? No 10/01/2024 Sex and Gender Information Value Date Recorded Sex Assigned at Male 01/04/2025 11:09 AM SUPERVISOR FUNCTIONAL TESTING Legal Sex Male 7:34 PM CDT Gender Identity Not on file Sexual Orientation Not on file Last Filed Vital Signs Vital Sign Reading Time Taken Comments Blood Pressure 100/60 12/27/2024 11:20 AM SUPERVISOR FUNCTIONAL TESTING Pulse 75 12/27/2024 11:20 AM SUPERVISOR FUNCTIONAL TESTING Temperature 36.8 C (98.2 F) 10/02/2024 7:32 AM SUPERVISOR FUNCTIONAL TESTING Respiratory Rate 22 10/02/2024 7:32 AM SUPERVISOR FUNCTIONAL TESTING Oxygen Saturation 93% 10/02/2024 7:32 AM SUPERVISOR FUNCTIONAL TESTING Inhaled Oxygen Concentration - - Weight 103.9 kg (229 lb) 12/27/2024 11:20 AM SUPERVISOR FUNCTIONAL TESTING Height 172.7 cm (5' 8 ) 12/27/2024 11:20 AM SUPERVISOR FUNCTIONAL TESTING Body Mass Index 34.82 12/27/2024 11:20 AM SUPERVISOR FUNCTIONAL TESTING Plan of Treatment Upcoming Encounters Date Type Department Care Team (Late st Contact Info) Description 07/04/2025 10:45 AM CDT [facility] [address] [place] [address] En Laughlin MD [facility]. [address] [address] Health Maintenance Due Date Last Done Comments Colorectal Cancer Screening Colonoscopy (10 Years) 1960 Annual Physical 1963 Pneumococcal Vaccine: Pediatrics (0 to 5 Years) and At-Risk Patients (6 to 64 Years) (1 of 2 - PCV) 1966 Hepatitis C 1978 DTaP, Tdap and Td Vaccines (1 - Tdap) 1979 Zoster Vaccines (1 of 2) 2010 RSV Immunization or 60+ Years (1 - Risk 60-74 years 1-dose series) 2020 COVID-19 Vaccine (1 - season) 2024 Influenza Adult (#1) 2024 09/20/2023, 09/14/2020, 08/02/2019 PHQ-2 (Physician Lawler) 11/07/2024 ASCVD LDL 01/18/2025 01/19/2024, 09/07, 03/09/2023, Additional history exists Meningococcal B Vaccine Aged Out No l onger eligible based on patient's age to complete this topic Meningococcal Vaccine Aged Out No hina huang eligible based on patient's age to complete this topic RSV Immunizations Under 20 Months Aged Out No longer eligible based on patient's age to complete this topic Procedures Procedure Name Priority Date/Time Associated Diagnosis Comments CBC (OUTSIDE LAB) Routine 11/13/2024 COMPREHENSIVE METABOLIC PANEL Routine 11/13/2024 HEMOGLOBIN, GLYCOSYLATED Routine 11/13/2024 LIPID PANEL Routine 01/19/2024 10:47 AM CDT Coronary artery disease involving [place] coronary artery of [place] heart without angina pectoris Mixed hyperlipidemia from Last 3 Months or Most Recently Relevant to Health Maintenance Results * CBC (OUTSIDE LAB) (11/13/2024) WBC [...] TOTAL PROTEIN S/P/B 6.9 GLOBULIN 2.3 11/13/2024 us Default History Genericprovider LABORATORY Edited Result - Final * HEMOGLOBIN, GLYCOSYLATED (11/13/2024) HGB A1C 5.7 % 11/13/2024 us Default History Genericprovider LABORATORY Edited Result - Final * (ABNORMAL) LIPID PANEL (01/19/2024 10:47 AM CDT) CHOLESTEROL 146 <200.0 MG/DL 01/19/2024 12:03 PM CDT [facility] TRIGLYCERIDES 143 <150 MG/DL 01/19/2024 12:03 PM CDT [facility] HDL 40(L) >40.0 MG/DL 01/19/2024 12:03 PM CDT [facility] LDL (CALCULATED) 77 <100 MG/DL 01/19/20 12:03 PM CDT [facility] NON HDL CHOLESTEROL 106 <130 MG/DL 01/18 12:03 PM CDT [facility] CHOL/HDL RATIO 3.6 0.0 - 4.5 01/19/2024 12:03 PM T [facility] VLDL CALCULATION 29 5 - 55 MG/DL 01/19/2024 12:03 PM T [facility] LIPID INTERPRETATION 01/19/2024 12:03 PM T [facility] Comment: [facility] CONCENSUS REPORT RECOMMENDATIONS: ADULT CHILD LOW RISK: CHOLESTEROL <200 <170 TRIGLYCERIDE <150 --- HDL >=60 --- LDL <100 <110 BORDERLINE: CHOLESTEROL 200-239 170-199 TRIGLYCERIDE 150-199 --- HDL 40-59 --- LDL 100-159 110-129 HIGH RISK: CHOLESTEROL >=240 >=200 TRIGLYCERIDE >=200 --- HDL <40 --- LDL >=160 >=130 01/19/2024 10:4 7 AM CDT us Lisbeth LRP LABORATORY Final Result [facility] [address] [place] [address], from Last 3 Months or Most Recently Relevant to Health Maintenance Insurance [employer] Advance Directives * Full Code (Latest Code Status on File) Date Activated Date Inactivated Comments 10/01/2024 11:29 AM 10/02/2024 12:10 PM * Full Code Date Activated Date Inactivated Comments 10/01/2024 10:41 AM 10/01/2024 11:29 AM * Full Code Date Activated Date Inactivated Comments 09/19/2023 9:15 AM 09/20/2023 6:56 PM Care Teams Marketing Intelligence Analyst Relationship Specialty Start Date End Date Estella Aguirre PA [address] [place] [id number] PCP - General PHYSICIAN FINANCE PROFESSOR 08/02/22
--- OUTSIDE RECORDS SUMMARY | 2025-02-06 01:16 | XMS_ITS | Encounter Summary ---
Author Organization [facility] Address [address] [place] [address] Care Team Providers Care Casserole Preparer Name Role Phone Estella Aguirre Primary Care Provider [phone] Encounter Details Date Type Department Care Team (Late Contact Info) Description 03/08/2023 Hospital Orders Only [facility] Manager Industrial [address] [place] [address] Junior Herrmann MD,PHD Social History Tobacco Use Types Packs/Day Years [...] Sex Assigned at Male 01/04/2025 11:09 AM CLIENT PROFESSIONAL Legal Sex Male 7:34 PM CDT Gender Identity Not on file Sexual Orientation Not on file COVID-19 Exposure Response Date Recorded In the last 10 days, have yo u been in contact with someone who was confirmed or suspected to have Coronavirus/COVID-19? No / Unsure 03/11/2023 10:46 AM CDT documented as of this encounter Plan of Treatment Upcoming Encounters Date Type Department Care Team (Late st Contact Info) Description 07/04/2025 10:45 AM CDT Office Visit [facility] [address] [place] [address] En Laughlin MD [address] [address] documented as of this encounter Visit Diagnoses Not on filedocumented in this encounter Additional Health Concerns Infection Onset Date Last Indicated Resolved Time COVID-19 Rule Out 10/01/2024 10/01/2024 10/01/2024 3:05 PM CLIENT PROFESSIONAL Rhinovirus 10/01/2024 10/01/2024 10/11/2024 12:3 2 AM CLIENT PROFESSIONAL documented as of this encounter Care Teams Casserole Preparer Relationship Specialty Start Date End Date Estella Aguirre PA [facility] [place] [address] PCP - General PHYSICIAN EMR TRAINER 08/02/22 documented as of this encounter
[2025-02-06 09:19] VITALS: BP 126/71; PULSE 65; RESP 18; TEMP 36.1; O2SAT 96
[2025-02-06] MEDS: LACTATED RINGERS 1,000 ML 150 ML IV CONT (09:42)
--- NOTE | 2025-02-06 09:53 | P.PNAN_ITS ---
Anes - Initial Pre Proc Eval Procedure: Operation Date: 02/06/25 10:30 Proposed Procedures p Colonoscopy - Anjel Seymour MD Date/Time: 02/06/25 09:53 Surgeon: Anjel Seymour MD Pre Op Diagnosis: hx of colon polyps Patient Data Age: 64 Gender: M Height: 1.73 m Weight: 103.2 kg Last Vital Signs Temp 36.1 C L 02/06/25 09:19 Pulse 65 02/06/25 09:19 Resp 18 02/06/25 09:19 BP 126/71 02/06/25 09:19 Pulse Ox 96 02/06/25 09:19 O2 Del Method Room Air 02/06/25 09:19 Allergies Allergy/AdvReac Type Severity Reaction Status Date / Time No Known Allergies Allergy Unknown Verified 02/06/25 09:17 Home Medications ?Medication ?Instructions ?Recorded ?Confirmed ?Type aspirin 81 mg chewable tablet 81 mg PO DAILY 07/29/22 02/06/25 History (Catherine Chewable Low Dose Aspirin) cholecalciferol (vitamin D3) 125 125 mcg PO DAILY 07/29/22 02/06/25 History mcg (5,000 unit) capsule mecobalamin (vitamin B12) 1,000 1,000 mcg sublingual DAILY 07/29/22 02/06/25 History mcg disintegrating tablet,sublingual amlodipine 5 mg tablet 5 mg PO DAILY 09/21/23 02/06/25 History atorvastatin 80 mg tablet 80 mg PO QHS 09/21/23 02/06/25 History metoprolol succinate 25 mg 25 mg PO DAILY 09/21/23 02/06/25 History tablet,extended release 24 hr nitroglycerin 0.4 mg sublingual 0.4 mg sublingual Q5M PRN Chest 09/21/23 01/28/25 History tablet Pain tamsulosin 0.4 mg capsule (Flomax) 0.4 mg PO DAILY 10/10/24 02/06/25 History eplerenone 25 mg tablet 25 mg PO DAILY #90 tabs 01/02/25 02/06/25 Rx Patient hx anesthesia problems: none Family hx anesthesia problems: none Results Review: All pre-operative results and documents have been reviewed as part of the pre- operative evaluation. [facility] Past Medical History Medical History (Updated 02/06/25 @ 10:13 by Anjel Seymour MD) Renal cyst (~2020) Hepatic cyst (~2020) STEMI (ST elevation myocardial infarction) (09/2023) 09/19/2023 with stent DB, Dr. Laughlin Elevated coronary artery calcium score FH: early coronary artery disease Right knee pain Obesity HTN (hypertension) Hyperlipidemia Kidney stones Wears glasses Surgical History Surgical History History of heart artery stent (~09/2023) History of lithotripsy Hx of colonoscopy Family History Family History Other Diabetes mellitus Social History Social History (Updated 10/05/24 @ 09:12 by Daquan Winter) Social History: 10/03/24 Patient is very confident in filling out medical forms. Smoking status: Never smoker Alcohol intake: current Alcohol use details: once a month Substance use: never Substance use type: does not use Do You Feel Safe in your Home?: Yes Lack of Transportation: No Lack of Food: Never True Current Housing: I Have Housing Concerned About Future Housing: No Difficulty Paying Gas/Electric Bills: No Difficulty Paying for Meds: No Currently Unemployed: No Education: Trade/Vocational Certificate Difficulty w/ Childcare or Family Care: No Living arrangements: with friend(s) Occupation/Education: occupation Gender identity (if verbalized by the patient): Male Spiritual care concerns: No Anes - Eval Final PreProcedure Day of Procedure 02/06/25 09:53 Patient weight: obese Heart: regular rate and rhythm Lungs: clear to auscultation Airway: Mallampati scale class II Neurological: alert and oriented Last oral intake: >/= 8 hours ASA classification: III Emergent: no Anesthetic plan: proceed Anesthesia type and monitoring: general GIVS and standard monitoring Results Review: All pre-operative results and documents have been reviewed as part of the pre- operative evaluation. Informed Consent: The patient's anesthetic plan and its attendant risks and benefits were discussed with the patient/family/POA. Questions were solicited and answers provided to the satisfaction of the patient/family/POA.
--- NOTE | 2025-02-06 10:12 | PM.IMHP ---
H&P: HPI History of Present Illness Date/Time: 02/06/25 10:12 Chief Complaint: History of colon polyps Narrative: The patient has a history of colonic polyps, the last colonoscopy was between 5 and 10 years ago. Review of Systems Review of Systems: All systems reviewed & are unremarkable except as noted in HPI and below PMFSH Past Medical History Medical History (Updated 02/06/25 @ 10:13 by Anjel Seymour MD) Renal cyst (~2020) Hepatic cyst (~2020) STEMI (ST elevation myocardial infarction) (09/2023) 09/19/2023 with stent LAD, Dr. Laughlin Elevated coronary artery calcium score FH: early coronary artery disease Right knee pain Obesity HTN (hypertension) Hyperlipidemia Kidney stones Wears glasses Surgical History Surgical History History of heart artery stent (~09/2023) History of lithotripsy Hx of colonoscopy Family History Family History Other Diabetes mellitus Social History Social History (Updated 10/05/24 @ 09:12 by Daquan Winter) Social History: 10/03/24 Patient is very confident in filling out medical forms. Smoking status: Never smoker Alcohol intake: current Alcohol use details: once a month Substance use: never Substance use type: does not use Do You Feel Safe in your Home?: Yes Lack of Transportation: No Lack of Food: Never True Current Housing: I Have Housing Concerned About Future Housing: No Difficulty Paying Gas/Electric Bills: No Difficulty Paying for Meds: No Currently Unemployed: No Education: Trade/Vocational Certificate Difficulty w/ Childcare or Family Care: No Living arrangements: with friend(s) Occupation/Education: occupation Gender identity (if verbalized by the patient): Male Spiritual care concerns: No Meds Home Medications and Allergies Home Medications ?Medication ?Instructions ?Recorded ?Confirmed ?Type aspirin 81 mg chewable tablet 81 mg PO DAILY 07/29/22 02/06/25 History (Catherine Chewable Low Dose Aspirin) cholecalciferol (vitamin D3) 125 125 mcg PO DAILY 07/29/22 02/06/25 History mcg (5,000 unit) capsule mecobalamin (vitamin B12) 1,000 1,000 mcg sublingual DAILY 07/29/22 02/06/25 History mcg disintegrating tablet,sublingual amlodipine 5 mg tablet 5 mg PO DAILY 09/21/23 02/06/25 History atorvastatin 80 mg tablet 80 mg PO QHS 09/21/23 02/06/25 History metoprolol succinate 25 mg 25 mg PO DAILY 09/21/23 02/06/25 History tablet,extended release 24 hr nitroglycerin 0.4 mg sublingual 0.4 mg sublingual Q5M PRN Chest 09/21/23 01/28/25 History tablet Pain tamsulosin 0.4 mg capsule (Flomax) 0.4 mg PO DAILY 10/10/24 02/06/25 History eplerenone 25 mg tablet 25 mg PO DAILY #90 tabs 01/02/25 02/06/25 Rx Allergies Allergy/AdvReac Type Severity Reaction Status Date / Time No Known Allergies Allergy Unknown Verified 02/06/25 09:17 Vital Signs Vital Signs - 24 hr 02/06/25 09:19 Temperature 97 F L Pulse Rate 65 Respiratory Rate 18 Blood Pressure 126/71 Pulse Oximetry 96 Oxygen Delivery Room Air Exam Const: General: cooperative and healthy appearing Resp: Effort & Inspection: normal respiratory effort and able to speak in complete sentences Auscultation: clear to auscultation bilaterally Cardio: Rate: regular rate Rhythm: regular rhythm GI: Inspection: normal to inspection GI Palp: No No hepatosplenomegaly present Auscultation: normal bowel sounds Rectal Exam: deferred Skin: General skin exam: normal color Psych: Appearance: grossly normal Mental Status: mental status grossly normal Assessment and Plan Assessment and plan (1) History of colonic polyps: Code(s): Z86.0100 - Personal history of colon polyps, unspecified Status: Acute Assessment and Plan: The patient is deemed a good candidate for the procedure. Consent signed. Will proceed.
[2025-02-06 10:45] VITALS: BP 115/70; PULSE 76; RESP 22; O2SAT 95
[2025-02-06 10:55] VITALS: BP 115/75; PULSE 73; RESP 23; O2SAT 95
[2025-02-06 11:05] VITALS: BP 133/78; PULSE 72; RESP 20; O2SAT 98
== END 2025-02-06 11:16 | disposition home or self-care (01) ==
PROVIDERS: PCP Physician Assistant Medical; Referring Provider Nurse Practitioner Family; Visit Provider Internal Medicine Gastroenterology
PROC: 0DJD8ZZ Inspection of Lower Intestinal Tract, Via Natural or Artificial Opening Endoscopic (ICD-10-PCS; CPT 45378; principal; 2025-02-06 10:30)
DX: Z12.11 Encounter for screening for malignant neoplasm of colon (principal); D12.0 Benign neoplasm of cecum; D12.5 Benign neoplasm of sigmoid colon; K57.30 Diverticulosis of large intestine without perforation or abscess without bleeding; I10 Essential (primary) hypertension; E78.5 Hyperlipidemia, unspecified; I25.2 Old myocardial infarction; E66.9 Obesity, unspecified; Z68.34 Body mass index [BMI] 34.0-34.9, adult; Z79.82 Long term (current) use of aspirin; Z98.890 Other specified postprocedural states; Z95.5 Presence of coronary angioplasty implant and graft; Z87.442 Personal history of urinary calculi
CPT/HCPCS: 45385; 88305; J2003; J2704; J7120

== ENCOUNTER 2025-05-27 09:09 | Outpatient (CLI) | payer OTHER, SELFPAY ==
--- NOTE | ~2025-05-27 | MM_ITS ---
EXAMINATION: MM diagnostic favian BI w roseann, US axilla LT INDICATION: 65-year old MALE; evaluation of lumpy and diffusely painful breasts caused by cardiac med ications which patient capped using 9 months ago. The pain and lumpiness have gone away and patient i s asymptomatic today. COMPARISON: Baseline TECHNIQUE: Digital breast tomosynthesis CC and MLO views of the BILATERAL breast were obtained with c omputer-aided detection to assist in interpretation of the study. FINDINGS: The breasts are almost entirely fatty.There is small volume of fibroglandular tissue in the subareolar location in BILATERAL breast compatible with gynecomastia. There are no suspicious masses, calcifications, architectural distortion or any other abnormality in BILATERAL breast. There is a prominent partially imaged lymph node in the left axilla. Left axillary ultrasound was performed for further evaluation. LEFT AXILLARY ULTRASOUND FINDINGS: Targeted evaluation of the left axilla was completed. Corresponding to the mammographic finding there is a prominent lymph node that has predominant fatty renetta and thin cortices. This is compatible with a benign lymph node. IMPRESSION: FINDINGS COMPATIBLE WITH MILD GYNECOMASTIA, NO MAMMOGRAPHIC EVIDENCE OF MALIGNANCY IN EITHER BREAST. FURTHER EVALUATION OF PATIENT'S PALPABLE LUMP SHOULD BE BASED ON CLINICAL IMPRESSION. FOLLOW-UP CLINICALLY WARRANTED. RECOMMENDATION: CLINICAL FOLLOW-UP NEEDED. BI-RADS 2, BENIGN FINDINGS Reviewed, dictated and finalized at location B. IMPRESSION: FINDINGS COMPATIBLE WITH MILD GYNECOMASTIA, NO MAMMOGRAPHIC EVIDENCE OF MALIGNA NCY IN EITHER BREAST. FURTHER EVALUATION OF PATIENT'S PALPABLE LUMP SHOULD BE BASED ON CLINICAL IMPRE SSION. FOLLOW-UP CLINICALLY WARRANTED. RECOMMENDATION: CLINICAL FOLLOW-UP NEEDED. BI-RADS 2, BENIGN FINDINGS
--- NOTE | ~2025-05-27 | US_ITS ---
US axilla LT 05/27/2025 10:29 Indication: Abnormal mammogram Procedure: High-resolution ultrasound of the left axilla Comparison: Mammogram dated 05/27/2025 Findings: There are enlarged left axillary lymph nodes, largest measuring 2.5 x 1.4 x 2.4 cm with ret ention of normal fatty hilum. There is thickening of the cortex, measuring up to 4-5 mm. Lymph jamila contour is slightly irregular and indistinct. Impression: 1: Left axillary lymphadenopathy. Differential diagnosis includes reactive lymphadenopathy, most comm on, infectious lymphadenitis and malignancy. Consider biopsy in the appropriate clinical setting. Reviewed, dictated and finalized at location A. Impression: 1: Left axillary lymphadenopathy. Differential diagnosis includes reactive lymp hadenopathy, most common, infectious lymphadenitis and malignancy. Consider bio psy in the appropriate clinical setting.
== END 2025-05-27 09:10 | disposition home or self-care (01) ==
LOC: MICIMG 09:11
PROVIDERS: PCP Physician Assistant Medical; Visit Provider Physician Assistant Medical
DX: N62 Hypertrophy of breast (principal); N63.20 Unspecified lump in the left breast, unspecified quadrant
CPT/HCPCS: 76882; 77062; 77066; G0279

== ENCOUNTER 2025-07-03 09:19 | Outpatient (CLI) | payer OTHER, SELFPAY ==
--- NOTE | ~2025-07-03 | US_ITS ---
EXAMINATION: US axilla LT HISTORY: 65-year-old male presents for follow-up on prominent left axillary lymph node that was recommended for biopsy but a follow-up was preferred in the interval. COMPARISON: 05/27/2025 FINDINGS: Targeted ultrasound of the left axilla was completed. Prominent lymph nodes in the left axilla are reidentified. The lymph nodes have predominant fatty hilum and thin cortices. Most likely these are benign lymph nodes. IMPRESSION: Probably benign left axillary prominent lymph nodes. RECOMMENDATION: In the absence of palpable lymph nodes in the left axilla, follow-up left axillary ultrasound in 6 month is recommended. BI-RADS 3, PROBABLY BENIGN Reviewed, dictated and finalized at location B. IMPRESSION: Probably benign left axillary prominent lymph nodes. RECOMMENDATION: In the absence of palpable lymph nodes in the left axilla, follow-up left axill sky ultrasound in 6 month is recommended. BI-RADS 3, PROBABLY BENIGN
== END 2025-07-03 09:20 | disposition home or self-care (01) ==
LOC: MICIMG 09:21
PROVIDERS: PCP Physician Assistant Medical; Visit Provider Surgery
DX: R59.0 Localized enlarged lymph nodes (principal)
CPT/HCPCS: 76882

== ENCOUNTER 2025-08-22 10:37 | Outpatient (CLI) | payer OTHER, SELFPAY ==
--- NOTE | 2025-08-22 11:00 | ECG_ITS ---
Test Date: 2025-08-22 11:05:46 Measurements Intervals [place] Rate: 61 P: 56 KS: 219 QRS: -27 QRSD: 114 T: 15 QT: 431 QTc: 434 Interpretive Statements SINUS RHYTHM WITH FIRST DEGREE AV BLOCK INTRAVENTRICULAR CONDUCTION DELAY CANNOT R/O SEPTAL INFARCT, AGE INDETERMINATE BORDERLINE T WAVE ABNORMALITY- INFERIOR LEADS BASELINE ARTIFACT- V1, V3 ABNORMAL ECG No previous ECG available for comparison Electronically Signed On 08-22-2025 11:08:10 CDT by Gordy Russ D.O.
[2025-08-22 11:03] LABS: Hematocrit 45.9 % (42.0-52.0); Hemoglobin 15.0 g/dL (14.0-18.0); Immature Granulocyte Percent A 0.3 % (0-0.5); Lymphocytes Absolute Auto 1.30 K/mm3 (0.9-3.2); Mean Corpuscular HGB Conc 32.7 g/dl (32-36); Mean Corpuscular Hemoglobin 31.1 pg (26-34); Mean Corpuscular Volume 95.2 fl (80-100); Nucleated Red Blood Cells Absolute Auto 0.000 K/mm3 (0.0-0.012); Nucleated Red Blood Cells Perc 0.0 % (0.0-0.2); Platelet Count Result 155 k/mm3 (150-375); Red Blood Count 4.82 M/mm3 (4.6-6.20); White Blood Count 7.0 K/mm3 (4.5-10.0)
[2025-08-22 11:42] LABS: Add Urine Microscopic? YES; Appearance Urine Clear (Clear); Glucose Urine UA Negative (Negative); Leukocyte Esterase Ur Negative LEU/UL (Negative); Need Manual Microscopic Reviewed; Nitrate Urine Negative (Negative); Non Pathogenic Casts 0-2; Specific Grav Ur 1.022 (1.001-1.035)
--- OUTSIDE RECORDS SUMMARY | 2025-08-22 12:29 | XMS_ITS | Encounter Summary ---
Author Organization [facility] Address [address] [place] [address] Care Team Providers Care Health Science Specialist Name Role Phone Estella Aguirre Primary Care Provider [phone] Encounter Details Date Type Department Care Team (Late Contact Info) Description 10/05/2022 CodeSealer Message Enc [facility] [address] [address] [place], [facility] Provider Stress test Social History Tobacco [...] Sex Assigned at Male 01/04/2025 11:09 AM TECHNICAL REPORT WRITER Legal Sex Male 7:34 PM CDT Gender Identity Not on file Sexual Orientation Not on file COVID-19 Exposure Response Date Recorded In the last 10 days, have yo u been in contact with someone who was confirmed or suspected to have Coronavirus/COVID-19? No / Unsure 10/04/2022 8:17 AM TECHNICAL REPORT WRITER documented as of this encounter Plan of Treatment Upcoming Encounters Date Type Department Care Team (Late Contact Info) Description 01/02/2026 10:00 AM TECHNICAL REPORT WRITER Office Visit [facility] [address] [place] [address] Lisbeth Burks, JUAN [address] [facility] [address] [place] [address] documented as of this encounter Visit Diagnoses Not on filedocumented in this encounter Additional Health Concerns Infection Onset Date Last Indicated Resolved Time COVID-19 Rule Out 10/01/2024 10/01/2024 10/01/2024 3:05 PM TECHNICAL REPORT WRITER Rhinovirus 10/01/2024 10/01/2024 10/11/2024 12:3 2 AM TECHNICAL REPORT WRITER documented as of this encounter Care Teams Health Science Specialist Relationship Specialty Start Date End Date Estella Aguirre PA [address] [place] [id number] PCP - General PHYSICIAN APPAREL DESIGNER 08/02/22 documented as of this encounter
--- OUTSIDE RECORDS SUMMARY | 2025-08-22 12:29 | XMS_ITS | Encounter Summary ---
Author Organization [facility] Address [address] [place] [address] Care Team Providers Care Weight Analyst Name Role Phone Estella Aguirre Primary Care Provider [phone] Encounter Details Date Type Department Care Team (Late st Contact Info) Description 06/10/2025 Abstract [facility] [address] Rowena Benz MA Social History Tobacco Use Types Packs/Day Years Used Date Smoking Tobacco: Never Smokeless Tobacco: Never Alcohol Use Standard Drinks/Week Comments Not Currently 0 (1 standard drink = 0.6 oz pur e alcohol) rare [facility] Utilities Answer Date Recorded In the past 12 months has e [employer], gas, oil, or water [employer] threatened to shut off services in your [...] and heating? Not hard at all 10/01/2024 PHQ-2 Answer Date Recorded Patient Health Questionnaire-2 Score 0 04/19/2025 Hunger Vital Sign Answer Date Recorded Within [...] any time in the past 12 m [facility], were you homeless or living in a assisted (including now)? No 10/01/2024 Sex and Gender Information Value Date Recorded Sex Assigned at Male 01/04/2025 11:09 AM RV TECHNICIAN Legal Sex Male 7:34 PM CDT Gender Identity Not on file Sexual Orientation Not on file documented as of this encounter Functional Status * Are you deaf or do you have serious difficulty hearing Answer Date of Assessment Author Status No 10/01/2024 4:21 PM Palmira Cazares RN Active * Are you blind or do you have serious difficulty seeing, even when wearing glasses? Answer Date of Assessment Author Status No 10/01/2024 4:21 PM Palmira Cazares RN Active * Do you have serious difficulty walking or climbing stairs? Answer Date of Assessment Author Status No 10/01/2024 4:21 PM Palmira Cazares RN Active * Do you have difficulty dressing or bathing? Answer Date of Assessment Author Status No 10/01/2024 4:21 PM Palmira Cazares RN Active * Because of a physical, mental, or emotional condition, do you have difficulty doing errands alone such as visiting a doctor's office or shopping? Answer Date of Assessment Author Status No 10/01/2024 4:21 PM Palmira Cazares RN Active documented as of this encounter Mental Status * Because of a physical, mental, or emotional condition, do you have serious difficulty concentrating, remembering, or making decisions? Answer Entry Date Author Status No 10/01/2024 4:21 PM Palmira Cazares RN Active documented in this encounter Plan of Treatment Upcoming Encounters Date Type Department Care Team (Late st Contact Info) Description 01/02/2026 10:00 AM RV TECHNICIAN Office Visit [facility] [address] [place] [phone] Lisbeth Burks FNP [address] [place] [id number] documented as of this encounter Procedures Procedure Name Priority Date/Time Associated Diagnosis Comments HEMOGLOBIN, GLYCOSYLATED Routine 04/10/2025 LIPID PANEL Routine 04/10/2025 CK (CPK) Routine 04/10/2025 URIC ACID BLOOD Routine 04/10/2025 documented in this encounter Results * URIC ACID BLOOD (04/10/2025) URIC ACID 6.4 04/10/2025 us Default History Genericprovider LABORATORY Edited Result - Final * CK (CPK) (04/10/2025) CPK 79 04/10/2025 us Default History Genericprovider LABORATORY Edited Result - Final * LIPID PANEL (04/10/2025) CHOLESTEROL 142 TRIGLYCERIDES 118 HDL 41 LDL (CALCULATED) 80 NON HDL CHOLESTEROL 101 us Default History Genericprovider LABORATORY Edited Result - Final * HEMOGLOBIN, GLYCOSYLATED (04/10/2025) HGB A1C 5.8 % us Default History Genericprovider LABORATORY Edited Result - Final documented in this encounter Visit Diagnoses Not on filedocumented in this encounter Care Teams Weight Analyst Relationship Specialty Start Date End Date Estella Aguirre PA [address] [place] [id number] PCP - General PHYSICIAN NEWSPAPER EDITOR MANAGING 08/02/22 documented as of this encounter
--- OUTSIDE RECORDS SUMMARY | 2025-08-22 12:29 | XMS_ITS | Encounter Summary ---
Author Organization [facility] Address [address] [place] [address] Care Team Providers Care Lapidary Apprentice Name Role Phone Estella Aguirre Primary Care Provider [phone] Encounter Details Date Type Department Care Team (Late st Contact Info) Description 03/08/2023 Hospital Orders Only [facility] Statistical Financial Analyst [address] [place] [address] Junior Herrmann MD,PHD Social History Tobacco Use [...] Sex Assigned at Male 01/04/2025 11:09 AM WAREHOUSING TECHNICIAN Legal Sex Male 7:34 PM CDT Gender Identity Not on file Sexual Orientation Not on file COVID-19 Exposure Response Date Recorded In the last 10 days, have yo u been in contact with someone who was confirmed or suspected to have Coronavirus/COVID-19? No / Unsure 03/11/2023 10:46 AM CDT documented as of this encounter Functional Status * Calculated C-SSRS Risk Score (Lifetime/Recent) Answer Date of Assessment Author Status No Risk Indicated 03/09/2023 9:29 AM CDT Elena Salgado RN Active * [place] Suicide Severity Rating Scale (Screener/Recent Self-Report) Question Answer Date of Assessment Author Status 1. Wish to be (Past 1 Month) No 03/09/2023 9:29 AM ZEBT Elena Salgado RN Active 2. Non-Specific Active Suici wing Thoughts (Past 1 Month) No 03/09/2023 9:29 AM ZEBT Elena Salgado RN Active 6. Suicidal Behavior (Lifetime) No 03/09/2023 9:29 AM CDT Elena Salgado RN Active documented as of this encounter Plan of Treatment Upcoming Encounters Date Type Department Care Team (Late st Contact Info) Description 01/02/2026 10:00 AM WAREHOUSING TECHNICIAN Office Visit [facility] [address] [place] [address] Lisbeth Burks FNP [address] [place] [address] documented as of this encounter Visit Diagnoses Not on filedocumented in this encounter Additional Health Concerns Infection Onset Date Last Indicated Resolved Time COVID-19 Rule Out 10/01/2024 10/01/2024 10/01/2024 3:05 PM WAREHOUSING TECHNICIAN Rhinovirus 10/01/2024 10/01/2024 10/11/2024 12:3 2 AM WAREHOUSING TECHNICIAN documented as of this encounter Care Teams Lapidary Apprentice Relationship Specialty Start Date End Date Estella Aguirre PA [address] [place] [id number] PCP - General PHYSICIAN TISSUE TECHNICIAN 08/02/22 documented as of this encounter
--- OUTSIDE RECORDS SUMMARY | 2025-08-22 12:29 | XMS_ITS | Encounter Summary ---
Author Organization [facility] Address [address] [place] [address] Care Team Providers Care Chief Nurse Name Role Phone Estella Aguirre Primary Care Provider [phone] Encounter Details Date Type Department Care Team (Late st Contact Info) Description 06/25/2025 Results Follow-Up [facility] [address] [place], [place] [phone] Lisbeth Burks FNP [facility] [address] [place], [place] [phone] SLEEP STUDY Social History Tobacco Use Types Packs/Day Years Used Date Smoking Tobacco: Never Smokeless Tobacco: Never Alcohol Use Standard Drinks/Week Comments Not Currently 0 (1 standard drink = 0.6 oz pur e alcohol) rare [facility] Utilities Answer Date Recorded In the past 12 months has e electric, gas, oil, or water company threatened to shut off services in your [...] any time in the past 12 m [facility], were you homeless or living in a penitentiary (including now)? No 10/01/2024 Sex and Gender Information Value Date Recorded Sex Assigned at Male 01/04/2025 11:09 AM PSS DELIVERY PROFESSIONAL Legal Sex Male 7:34 PM CDT [...] st Contact Info) Description 01/02/2026 10:00 AM PSS DELIVERY PROFESSIONAL Office Visit [facility] [address] [place] [phone] Lisbeth Burks, JUAN [address] [place], [place] [address] [place] [address] documented as of this encounter Visit Diagnoses Not on filedocumented in this encounter Care Teams Chief Nurse Relationship Specialty Start Date End Date Estella Aguirre PA [address] [place] [phone] PCP - General PHYSICIAN SUPERVISOR DRYING 08/02/22 documented as of this encounter
--- OUTSIDE RECORDS SUMMARY | 2025-08-22 12:29 | XMS_ITS | Clinical Summary ---
Author Organization [facility] Address [address] [place] [address] Care Team Providers Care Vice President Of Talent Management Name Role Phone Estella Aguirre Primary Care Provider [phone] Allergies No known active allergies Medications albuterol [...] mg total) by mouth daily 12/18/2024 Active Surgical History Surgery Date Site/Laterality Comments COLONOSCOPY [...] on file Legal Sex Male 1:36 PM ROBOTICS APPLICATION ENGINEER Gender Identity Not on file Sexual Orientation Not on file Obstetrics History Last Filed Vital Signs Vital Sign Reading Time Taken Comments Blood Pressure 133/87 12/17/2024 9:25 AM ROBOTICS APPLICATION ENGINEER Pulse 72 12/17/2024 9:25 AM ROBOTICS APPLICATION ENGINEER Temperature 35.7 C (96.3 F) 12/17/2024 8:16 AM ROBOTICS APPLICATION ENGINEER Respiratory Rate 16 12/17/2024 9:25 AM ROBOTICS APPLICATION ENGINEER Oxygen Saturation 96% 12/17/2024 9:25 AM ROBOTICS APPLICATION ENGINEER Inhaled Oxygen Concentration - - Weight 99.3 kg (219 lb) 12/17/2024 8:16 AM ROBOTICS APPLICATION ENGINEER Height 172.7 cm (5' 8) 12/17/2024 8:16 AM ROBOTICS APPLICATION ENGINEER Body Mass Index 33.3 12/17/2024 8:16 AM ROBOTICS APPLICATION ENGINEER Plan of Treatment Health Maintenance Due Date Last Done Comments Colon Cancer Screening-Colonoscopy 1960 Depression Screening 1960 Fall Risk Assessment 1960 Hepatitis C Screening 1960 Prostate Cancer Screening-PSA 1960 DTaP/Tdap/Td Vaccine (1 - Tdap) 1971 Hepatitis B Screening 1978 Pneumococcal vaccine 65+ (1 of 1 - PCV) 2010 Zoster Vaccine (1 of 2) 2010 Well Visit 65+ 2025 Covid-19 Vaccine (3 - 2024- season) 07/08/202512/2020, 03/18/2021 Influenza Vaccine (#1) 2025 , 09/14/2020, 08/02/2019 Advance Directives For more information, please contact: [phone] * Full Code (Latest Code Status on File) Date Activated Date Inactivated Comments 12/17/2024 8:08 AM 12/17/2024 1:43 PM Care Teams Vice President Of Talent Management Relationship Specialty Start Date End Date Estella Aguirre PA [address] [place] [id number] PCP - General Physician Manager Heavy Equipment 12/07/24
--- OUTSIDE RECORDS SUMMARY | 2025-08-22 12:29 | XMS_ITS | Clinical Summary ---
Author Organization [facility] Address [address] [place] [address] Care Team Providers Care Tearoom Host Name Role Phone Estella Aguirre Primary Care Provider [phone] Allergies No known active allergies Medications aspirin [...] 3rd dose call 911 25 tablet 1 10/06/2023 Active tamsulosin (FLOMAX) 0.4 MG Cap Take 1 capsule (0.4 mg total) by mouth daily. 09/06/2024 Active amLODIPine (NORVASC) 5 MG tablet Take 1 tablet (5 mg total) by mouth daily. 90 tablet 3 12/27/2024 Active atorvastatin (LIPITOR) 80 MG tablet Take 1 tablet (80 mg total) by mouth nightly at bedtime. 90 tablet 3 12/27/2024 Active eplerenone (INSPRA) 25 MG tablet Take 1 tablet (25 mg total) by mouth daily. 90 tablet 3 12/27/2024 Active Active Problems Problem Noted Date Diagnosed Date Pyelonephritis 10/01/2024 NSTEMI (non-ST elevated myocardial infarction) 1 11/19/2022 Encounters Date Type Department Care Team Description 07/04/2025 10:45 AM CDT Office Visit [facility] [address] [place] [address] En Laughlin MD Coronary Artery Disease; Hypertension; Lipids 07/04/2025 Travel 06/25/2025 Results [facility], [address] [address] Lisbeth Burks FNP SLEEP STUDY 06/10/2025 Results Follow[facility]Up [facility], [address] [address] Loly العلي RN LIPID PANEL, CK (CPK), URIC ACID BLOOD 06/10/2025 Abstract [facility], [address] [address] Rowena Benz MA from Last 3 Months Immunizations Immunization Administration Dates Next Due Fluzone 6 Months+ [...] Never Smokeless Tobacco: Never Tobacco Cessation:Counseling Given: No Alcohol Use Standard Drinks/Week Comments Not Currently 0 (1 standard drink = 0.6 oz pur e alcohol) rare [facility] Utilities Answer Date Recorded In the past [...] any time in the past 12 m [facility], were you homeless or living in a [facility] (including now)? No 10/01/2024 Sex and Gender Information Value Date Recorded Sex Assigned at Male 01/04/2025 11:09 AM MANAGER COST Legal Sex Male 7:34 PM CDT Gender Identity Not on file Sexual Orientation Not on file Last Filed Vital Signs Vital Sign Reading Time Taken Comments Blood Pressure 130/76 07/04/2025 10:40 AM CDT Pulse 62 07/04/2025 10:40 AM CDT Temperature 36.9 C (98.4 F) 04/19/2025 9:39 AM CDT Respiratory Rate 18 04/19/2025 9:39 AM CDT Oxygen Saturation 96% 07/04/2025 10:40 AM CDT Inhaled Oxygen Concentration - - Weight 103.9 kg (229 lb) 07/04/2025 10:40 AM CDT Height 172.7 cm (5' 8) 07/04/2025 10:40 AM CDT Body Mass Index 34.82 07/04/2025 10:40 AM CDT Plan of Treatment Upcoming Encounters Date Type Department Care Team (Late st Contact Info) Description 01/02/2026 10:00 AM MANAGER COST [facility] [address] [place] [address] Lisbeth Burks, JUAN [address] [place] [address] Health Maintenance Due Date Last Done Comments Colorectal Cancer Screening Colonoscopy (10 Years) 1960 Hepatitis C 1978 DTaP, Tdap and Td Vaccines ( 1 - Tdap) 1979 Pneumococcal Vaccine: 50+ Years (1 of 2 - PCV) 1979 Zoster Vaccines (1 of 2) 2010 RSV Immunization or 60+ Years (1 - Risk 60-74 years 1-dose series) 2020 COVID-19 Vaccine (3 - 2024-2 6 season) 2025 04/08/2021, 03/18/2021 Influenza Adult (#1) 2025 09/20/2023, 09/14/2020, 08/02/2019 PHQ-2 (Physician Huslia) Completed 04/19/2025 Meningococcal B Vaccine Aged Out No l onger eligible based on patient's age to complete this topic Meningococcal Vaccine Aged Out No hina huang eligible based on patient's age to complete this topic RSV Immunizations Under 20 Months Aged Out No longer eligible b ased on patient's age to complete this topic Insurance R Advance Directives * Full Code (Latest Code Status on File) Date Activated Date Inactivated Comments 10/01/2024 11:29 AM 10/02/2024 12:10 PM * Full Code Date Activated Date Inactivated Comments 10/01/2024 10:41 AM 10/01/2024 11:29 AM * Full Code Date Activated Date Inactivated Comments 09/19/2023 9:15 AM 09/20/2023 6:56 PM Care Teams Tearoom Host Relationship Specialty Start Date End Date Estella Aguirre PA [address] [place] [address] PCP - General PHYSICIAN UNIVERSITY PRESIDENT 08/02/22
--- OUTSIDE RECORDS SUMMARY | 2025-08-22 12:29 | XMS_ITS | Encounter Summary ---
Author Organization [facility] Address [address] [place] [address] Care Team Providers Care Valve Seater Operator Name Role Phone Estella Aguirre Primary Care Provider [phone] Encounter Details Date Type Department Care Team (Late Contact Info) Description 10/18/2022 Abstract [facility] [address] Rowena Benz MA Social History Tobacco Use [...] Sex Assigned at Male 01/04/2025 11:09 AM ENVIRONMENTAL SCIENCE TECHNICIAN Legal Sex Male 7:34 PM CDT Gender Identity Not on file Sexual Orientation Not on file COVID-19 Exposure Response Date Recorded In the last 10 days, have yo u been in contact with someone who was confirmed or suspected to have Coronavirus/COVID-19? No / Unsure 10/04/2022 8:17 AM ENVIRONMENTAL SCIENCE TECHNICIAN documented as of this encounter Plan of Treatment Upcoming Encounters Date Type Department Care Team (Late Contact Info) Description 01/02/2026 10:00 AM ENVIRONMENTAL SCIENCE TECHNICIAN Office Visit [facility] [address] [place] [phone] Lisbeth Burks, PROCESS PLANNER 3 [facility] [address] [place] [address] documented as of this encounter Procedures Procedure [...] TOTAL PROTEIN S/P/B 6.9 GLOBULIN 2.3 11/13/2024 [facility] Genericprovider LABORATORY Edited Result - Final * HEMOGLOBIN, GLYCOSYLATED (11/13/2024) Pathologist [facility] HGB A1C 5.7 % 11/13/2024 Result [facility] Genericprovider LABORATORY Edited Result - Final * VITAMIN D, 25 OH (06/03/2022) Pathologist [facility] VITAMIN D 25 HYDROXY S/P/B 82 06/03/2022 Result [facility] Genericprovider LABORATORY Final Result * VITAMIN D, 25 OH (12/14/2021) Pathologist [facility] VITAMIN D 25 HYDROXY S/P/B 16 12/14/2021 [facility] Result * COMPREHENSIVE METABOLIC PANEL (12/14/2021) Pathologist [facility] SODIUM S/P/B 142 GLUCOSE 95 mg/dL AST 22 BUN 20 CREATININE S/P/B 1.03 0.7 - 1.3 CALCIUM S/P/B 10.2 POTASSIUM S/P/B 3.6 CHLORIDE S/P/B 105 ALT 34 GFR ESTIMATE 78 Result [facility] Genericprovider LABORATORY Final Result * LIPID PANEL (12/14/2021) Pathologist [facility] CHOLESTEROL 172 TRIGLYCERIDES 174 HDL 42 LDL (CALCULATED) 101 NON HDL CHOLESTEROL 130 Result [facility] Genericprovider LABORATORY Final Result * CBC, MANUAL DIFF (12/14/2021) Pathologist [facility] WBC 6.5 HGB 16.4 HCT 48.9 PLT 163 us Default History Genericprovider LABORATORY Final Result * HEMOGLOBIN, GLYCOSYLATED (12/14/2021) HGB A1C 5.6 % us Default History Genericprovider LABORATORY Final Result documented in this encounter Visit Diagnoses Not on filedocumented in this encounter Additional Health Concerns Infection Onset Date Last Indicated Resolved Time COVID-19 Rule Out 10/01/2024 10/01/2024 10/01/2024 3:05 PM ENVIRONMENTAL SCIENCE TECHNICIAN Rhinovirus 10/01/2024 10/01/2024 10/11/2024 12:3 2 AM ENVIRONMENTAL SCIENCE TECHNICIAN documented as of this encounter Care Teams Valve Seater Operator Relationship Specialty Start Date End Date Estella Aguirre PA [address] [place] [phone] PCP - General PHYSICIAN RIBBON LAP MACHINE TENDER 08/02/22 documented as of this encounter
== END 2025-08-22 10:38 | disposition home or self-care (01) ==
LOC: ANHLAB 10:41
PROVIDERS: PCP Physician Assistant Medical; Visit Provider Nurse Practitioner Family
DX: R73.9 Hyperglycemia, unspecified (principal); E83.42 Hypomagnesemia; I21.3 ST elevation (STEMI) myocardial infarction of unspecified site; R93.1 Abnormal findings on diagnostic imaging of heart and coronary circulation; I10 Essential (primary) hypertension; R53.83 Other fatigue
CPT/HCPCS: 36415; 81001; 85025; 93005

== ENCOUNTER 2025-08-26 08:47 | Outpatient (CLI) | payer OTHER, SELFPAY ==
--- OUTSIDE RECORDS SUMMARY | 2025-08-26 09:26 | XMS_ITS | Encounter Summary ---
Author Organization [facility] Address [address] [place] [address] Care Team Providers Care Disposal Operator Name Role Phone Estella Aguirre Primary Care Provider [phone] Encounter Details Date Type Department Care Team (Late st Contact Info) Description 03/08/2023 Hospital Orders Only [facility] Supervisor Paint Department [address] [facility] [place] [address] Junior Herrmann MD,PHD Social History Tobacco Use [...] Sex Assigned at Male 01/04/2025 11:09 AM MOTOR ASSEMBLY SUPERVISOR Legal Sex Male 7:34 PM CDT Gender [...] AM CDT Elena Salgado RN Active * Terrell Suicide Severity Rating Scale (Screener/Recent Self-Report) Question [...] st Contact Info) Description 01/02/2026 10:00 AM MOTOR ASSEMBLY SUPERVISOR Office Visit [facility] [address] [place] [address] Lisbeth Burks FNP [address] [place] [address] documented as of this encounter Visit Diagnoses Not on filedocumented in this encounter Additional Health Concerns Infection Onset Date Last Indicated Resolved Time COVID-19 Rule Out 10/01/2024 10/01/2024 10/01/2024 3:05 PM MOTOR ASSEMBLY SUPERVISOR Rhinovirus 10/01/2024 10/01/2024 10/11/2024 12:3 2 AM MOTOR ASSEMBLY SUPERVISOR documented as of this encounter Care Teams Disposal Operator Relationship Specialty Start Date End Date Estella Aguirre PA [address] [place] [id number] PCP - General PHYSICIAN RESEARCH CENTER DIRECTOR 08/02/22 documented as of this encounter
--- OUTSIDE RECORDS SUMMARY | 2025-08-26 09:26 | XMS_ITS | Clinical Summary ---
Author Organization [facility] Address [address] [place] [address] Care Team Providers Care Traffic Signal Mechanic Name Role Phone Estella Aguirre Primary Care Provider [phone] Allergies No known active allergies Medications albuterol [...] on file Legal Sex Male 1:36 PM REFRIGERATION PLANT OPERATOR Gender Identity Not on file Sexual Orientation Not on file Obstetrics History Last Filed Vital Signs Vital Sign Reading Time Taken Comments Blood Pressure 133/87 12/17/2024 9:25 AM REFRIGERATION PLANT OPERATOR Pulse 72 12/17/2024 9:25 AM REFRIGERATION PLANT OPERATOR Temperature 35.7 C (96.3 F) 12/17/2024 8:16 AM REFRIGERATION PLANT OPERATOR Respiratory Rate 16 12/17/2024 9:25 AM REFRIGERATION PLANT OPERATOR Oxygen Saturation 96% 12/17/2024 9:25 AM REFRIGERATION PLANT OPERATOR Inhaled Oxygen Concentration - - Weight 99.3 kg (219 lb) 12/17/2024 8:16 AM REFRIGERATION PLANT OPERATOR Height 172.7 cm (5' 8) 12/17/2024 8:16 AM REFRIGERATION PLANT OPERATOR Body Mass Index 33.3 12/17/2024 8:16 AM REFRIGERATION PLANT OPERATOR Plan of Treatment Health Maintenance Due Date [...] Advance Directives For more information, please contact: [phone] * Full Code (Latest Code Status on File) Date Activated Date Inactivated Comments 12/17/2024 8:08 AM 12/17/2024 1:43 PM Care Teams Traffic Signal Mechanic Relationship Specialty Start Date End Date Estella Aguirre PA [address] [place] [id number] PCP - General Physician Assisted Living Nursing Director 12/07/24
--- OUTSIDE RECORDS SUMMARY | 2025-08-26 09:27 | XMS_ITS | Encounter Summary ---
Author Organization [facility] Address [address] [place] [address] Care Team Providers Care Addiction Social Worker Name Role Phone Estella Aguirre Primary Care Provider [phone] Encounter Details Date Type Department Care Team (Late Contact Info) Description 10/18/2022 [facility] [address] Rowena Benz MA Social History Tobacco Use [...] Sex Assigned at Male 01/04/2025 11:09 AM PHARMACY SCHEDULER Legal Sex Male 7:34 PM CDT Gender Identity Not on file Sexual Orientation Not on file COVID-19 Exposure Response Date Recorded In the last 10 days, have yo u been in contact with someone who was confirmed or suspected to have Coronavirus/COVID-19? No / Unsure 10/04/2022 8:17 AM PHARMACY SCHEDULER documented as of this encounter Plan of Treatment Upcoming Encounters Date Type Department Care Team (Late Contact Info) Description 01/02/2026 10:00 AM PHARMACY SCHEDULER Office Visit [facility] [address] [place] [address] Lisbeth Burks, SQUIRT MACHINE OPERATOR 3 [facility] [address] [place] [address] documented as of this encounter Procedures Procedure [...] PROTEIN S/P/B 6.9 GLOBULIN 2.3 11/13/2024 [facility] Genericprovider LABORATORY Edited Result - Final * HEMOGLOBIN, GLYCOSYLATED (11/13/2024) Pathologist [facility] HGB A1C 5.7 % 11/13/2024 Result [facility] Genericprovider LABORATORY Edited Result - Final * VITAMIN D, 25 OH (06/03/2022) Pathologist [facility] VITAMIN D 25 HYDROXY S/P/B 82 06/03/2022 Result [facility] Genericprovider LABORATORY Final Result * VITAMIN D, 25 OH (12/14/2021) Pathologist [facility] VITAMIN D 25 HYDROXY S/P/B 16 12/14/2021 [facility] Result * COMPREHENSIVE METABOLIC PANEL (12/14/2021) Pathologist [facility] SODIUM S/P/B 142 GLUCOSE 95 mg/dL AST 22 BUN 20 CREATININE S/P/B 1.03 0.7 - 1.3 CALCIUM S/P/B 10.2 POTASSIUM S/P/B 3.6 CHLORIDE S/P/B 105 ALT 34 GFR ESTIMATE 78 Result [facility] Genericprovider LABORATORY Final Result * LIPID PANEL (12/14/2021) Pathologist [facility] CHOLESTEROL 172 TRIGLYCERIDES 174 HDL 42 LDL (CALCULATED) 101 NON HDL CHOLESTEROL 130 Result [facility] Genericprovider LABORATORY Final Result * CBC, MANUAL DIFF (12/14/2021) Pathologist [facility] WBC 6.5 HGB 16.4 HCT 48.9 PLT 163 us Default History Genericprovider LABORATORY Final Result * HEMOGLOBIN, GLYCOSYLATED (12/14/2021) HGB A1C 5.6 % us Default History Genericprovider LABORATORY Final Result documented in this encounter Visit Diagnoses Not on filedocumented in this encounter Additional Health Concerns Infection Onset Date Last Indicated Resolved Time COVID-19 Rule Out 10/01/2024 10/01/2024 10/01/2024 3:05 PM PHARMACY SCHEDULER Rhinovirus 10/01/2024 10/01/2024 10/11/2024 12:3 2 AM PHARMACY SCHEDULER documented as of this encounter Care Teams Addiction Social Worker Relationship Specialty Start Date End Date Estella Aguirre PA [address] [place] [address] PCP - General PHYSICIAN COMMUNICATION CENTER COORDINATOR 08/02/22 documented as of this encounter
--- OUTSIDE RECORDS SUMMARY | 2025-08-26 09:27 | XMS_ITS | Encounter Summary ---
Author Organization [facility] Address [address] [place] [address] Care Team Providers Care Ski Production Supervisor Name Role Phone Estella Aguirre Primary Care Provider [phone] Encounter Details Date Type Department Care Team (Late Contact Info) Description 10/05/2022 Soci Ads Message Enc [facility] [address] [address] Efren, [facility] Provider Stress test Social History Tobacco Use [...] Sex Assigned at Male 01/04/2025 11:09 AM FIRE BOSS Legal Sex Male 7:34 PM CDT Gender Identity Not on file Sexual Orientation Not on file COVID-19 Exposure Response Date Recorded In the last 10 days, have yo u been in contact with someone who was confirmed or suspected to have Coronavirus/COVID-19? No / Unsure 10/04/2022 8:17 AM FIRE BOSS documented as of this encounter Plan of Treatment Upcoming Encounters Date Type Department Care Team (Late Contact Info) Description 01/02/2026 10:00 AM FIRE BOSS Office Visit [facility] [address] [place] [address] Lisbeth Burks, JUAN 3 [facility] [address] [place] [address] documented as of this encounter Visit Diagnoses Not on filedocumented in this encounter Additional Health Concerns Infection Onset Date Last Indicated Resolved Time COVID-19 Rule Out 10/01/2024 10/01/2024 10/01/2024 3:05 PM FIRE BOSS Rhinovirus 10/01/2024 10/01/2024 10/11/2024 12:3 2 AM FIRE BOSS documented as of this encounter Care Teams Ski Production Supervisor Relationship Specialty Start Date End Date Estella Aguirre PA [address] [place] [address] PCP - General PHYSICIAN MEDICAL TRANSCRIPTION SUPERVISOR 08/02/22 documented as of this encounter
--- OUTSIDE RECORDS SUMMARY | 2025-08-26 09:28 | XMS_ITS | Clinical Summary ---
Author Organization [facility] Address [address] [place] [address] Care Team Providers Care Comber Setter Name Role Phone Estella Aguirre Primary Care Provider [phone] Allergies No known active allergies Medications aspirin [...] Encounters Date Type Department Care Team Description 08/23/2025 [facility]phone [facility], [address] [address] En Laughlin MD Surgical Clearance 07/04/2025 10:45 AM CDT Office Visit [facility] [address] [place] [address] En Laughlin MD Coronary Artery Disease; Hypertension; Lipids 07/04/2025 Travel 06/25/2025 [facility] [address] [address] Lisbeth Burks FNP SLEEP STUDY 06/10/2025 [facility] [address] [address] Loly العلي RN LIPID PANEL, CK (CPK), URIC ACID BLOOD 06/10/2025 Abstract [facility], [address] [address] Rowena Benz MA from Last 3 Months [...] = 0.6 oz pur e alcohol) rare [facility] Utilities Answer Date Recorded In the past 12 months has th e electric, gas, oil, or water company [...] any time in the past 12 m [facility], were you homeless or living in a prison (including now)? No 10/01/2024 Sex and Gender Information Value Date Recorded Sex Assigned at Male 01/04/2025 11:09 AM GRADER MEAT Legal Sex Male 7:34 PM CDT Gender [...] st Contact Info) Description 01/02/2026 10:00 AM GRADER MEAT [facility] [address] [place] [phone] Lisbeth Burks FNP [address] [place] [id number] Health Maintenance Due Date Last Done Comments [...] (#1) 2025 09/20/2023, 09/14/2020, 08/02/2019 PHQ-2 (Physician Inaja) Completed 04/19/2025 Hepatitis A Vaccines Aged Out No long er eligible based on patient's age to complete this topic Meningococcal B Vaccine Aged Out No l [...] 9:15 AM 09/20/2023 6:56 PM Care Teams Comber Setter Relationship Specialty Start Date End Date Estella Aguirre PA [address] [place], [place] [phone] PCP - General PHYSICIAN ARCHITECT IN TRAINING 08/02/22
[2025-08-26 10:19] LABS: Anion Gap 8 mmol/L (4-12); Blood Urea Nitrogen 14 mg/dL (9-20); Calcium 9.8 mg/dL (8.4-10.2); Carbon Dioxide 24 mmol/L (22-30); Chloride 106 mmol/L (98-107); Estimated Glomerular Filt Rate > 60; Glucose 107 mg/dL (65-110); Potassium 3.9 mmol/L (3.4-5.0); Sodium 138 mmol/L (137-145)
== END 2025-08-26 08:48 | disposition home or self-care (01) ==
PROVIDERS: PCP Physician Assistant Medical; Visit Provider Nurse Practitioner Family
DX: R73.9 Hyperglycemia, unspecified (principal); E83.42 Hypomagnesemia; I21.3 ST elevation (STEMI) myocardial infarction of unspecified site; R93.1 Abnormal findings on diagnostic imaging of heart and coronary circulation
CPT/HCPCS: 36415; 80048